=== PATIENT | female | born 1935 | race Caucasian/White ===

== ENCOUNTER 2017-04-16 11:30 | Outpatient (CLI) | payer MEDICARE, OTHER ==
[2017-04-16 12:16] LABS: Hematocrit 35.7 % (36.0-47.0); Red Blood Cell (RBC) Count 3.95 mill/uL (4.20-5.40); White Blood Cell (WBC) Count 5.8 thou/uL (4.8-10.8)
[2017-04-16 12:23] LABS: PTT 30.1 SEC (22.9-36.1); Prothrombin Time 13.2 SEC (12.0-14.7)
[2017-04-16 12:42] LABS: Anion Gap 10 mmol/L (10-20); BUN (Urea Nitrogen) 18 mg/dL (9.8-20.1); Calc. Creatinine Clearance 0 mL/min (70-130); Calcium 9.7 mg/dL (7.8-10.44); Carbon Dioxide 29 mmol/L (23-31); Chloride 102 mmol/L (98-107); Estimated GFR-MDRD 54
[2017-04-16 13:53] LABS: Bilirubin Negative (Negative); Blood, Urine Moderate (Negative); Glucose, Urine (Dipstick) Negative (Negative); Ketone, Urine Negative (Negative); Nitrite Negative (Negative); Protein, Urine (Dipstick) 30 mg/dL (Neg-Trace); Urobilinogen 0.2 mg/dL (0.2-1.0)
[2017-04-16 13:55] LABS: Bacteria/HPF 1+ HPF (None Seen); Hyaline Casts/LPF 0-3 HYALINE CAST LPF (0-3 Hyaline); Squamous Epithelial None Seen HPF (0-3); WBC/HPF 21-50 HPF (0-3)
== END 2017-04-16 11:31 | disposition home or self-care (01) ==
LOC: LABBT 11:30
PROVIDERS: ATTEND Urology
DX: Z01.812 Encounter for preprocedural laboratory examination (principal); N13.39 Other hydronephrosis; N39.41 Urge incontinence
CPT/HCPCS: 80048; 81003; 81015; 85027; 85610; 85730; 87086

== ENCOUNTER 2017-05-02 05:35 | Day surgery (SDC) | payer MEDICARE, OTHER ==
[2017-04-16 11:41] VITALS: BMI 23.9
[2017-05-02] MEDS ORDERED: Levofloxacin 500 mg/D5W 100 ml Premix Bag ONE (06:22)
[2017-05-02 06:39] LABS: Hematocrit 37.2 % (36.0-47.0); Mean Platelet Volume 6.1 fL (7.4-10.4); Red Blood Cell (RBC) Count 4.14 mill/uL (4.20-5.40); White Blood Cell (WBC) Count 5.8 thou/uL (4.8-10.8)
[2017-05-02 06:42] LABS: PTT 28.8 SEC (22.9-36.1); Prothrombin Time 13.2 SEC (12.0-14.7)
[2017-05-02 06:57] LABS: Anion Gap 12 mmol/L (10-20); BUN (Urea Nitrogen) 14 mg/dL (9.8-20.1); Calc. Creatinine Clearance 42 mL/min (70-130); Calcium 9.5 mg/dL (7.8-10.44); Carbon Dioxide 29 mmol/L (23-31); Chloride 102 mmol/L (98-107); Estimated GFR-MDRD 50
[2017-05-02] MEDS ORDERED: Iothalamate Meglumine 60% 50 ML VIAL FS ONE (07:29)
[2017-05-02] MEDS ORDERED: Midazolam HCl 2 mg/2 ml Vial ONE (08:23)
[2017-05-02] MEDS ORDERED: Fentanyl 100 MCG/2 ML VIAL ONE (08:23)
[2017-05-02] MEDS ORDERED: Promethazine HCl 25 MG/ML VIAL ONE (08:24)
--- NOTE | 2017-05-02 08:26 | RAD ---
KUB: Indication: Pre procedure examination. Comparison: 10-30-16 FINDINGS: Examination does not appear appreciably changed from the comparison. There is a left ureteral stent p rojecting in the expected position. No suspicious calcification is seen along the course of the left ureter, nor overlying the left renal shadow. There are vascular calcifications scattered within the p ole and upper abdomen. Bowel gas pattern is nonobstructed. No acute osseous abnormality is evident. IMPRESSION: Left ureteral stent. POS: [facility]
--- NOTE | 2017-05-02 09:34 | RAD ---
RETROGRADE PYELOGRAM: Two fluoroscopic views are presented. INDICATION: Fluoroscopic imaging in the OR during ureteral stent placement. FINDINGS: The 1st image shows wire and catheter overlying the left ureter. The second image shows partial opac ification of the left upper collecting structures and a double-pigtail left ureteral stent in place. POS: [facility]
[2017-05-02] MEDS ORDERED: Phenazopyridine HCl 97.5 MG TABLET ONE (09:59)
--- NOTE | 2017-05-02 11:07 | OP ---
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 POSTOPERATIVE DIAGNOSIS: A 81-year-old female with history of left chronic hydroureteronephrosis sec ondary to B-cell lymphoma, retroperitoneal lymphadenopathy. PROCEDURES PERFORMED: Cystoscopy, left retrograde, 6 x 24 double-J ureteral stent exchange. SURGEON: Dr. Estevez. ANESTHESIA: General LMA. COMPLICATIONS: None apparent. DISPOSITION: To recovery room in stable condition. INDICATIONS FOR THE PROCEDURE AND HISTORY: Ms. Koenig is a 81-year-old female with history of B-cell lymphoma, due to retroperitoneal lymphadenopathy, retroperitoneal fibrosis causing left hydronephrosi s. She is currently on 3-month interval left stent exchange uneventfully. Risks and complications a nd indications reviewed and she desires to proceed. Her last staging CT was performed on 07/2016 dem onstrating left ureteral stent in good position without significant evidence of obstruction. Right k idney is grossly unremarkable. The patient and previously were advised regarding options of stent pull and observation, given her advanced age as an alternative option. They are considering th is due to her advanced age. On our last visit, desires to proceed with interval stent exchan ge. DESCRIPTION OF THE PROCEDURE: After an informed consent was signed, the patient was taken to the ope rating room, placed in a dorsal lithotomy position with the genital area prepped and draped in the [facility] surgical sterile fashion. A 21-Macedonian cystoscope was utilized for cystoscopy. Upon entering the bladder, again demonstrates radiation cystitis with telangiectasia, the bladder mucosa vasculature w ith no active bleeding was noted. There was some sedimentous debris in the dependent portion of the bladder, which was irrigated. The bilateral UOs are normal in anatomical location. The left uretera l stent was in good position and this was removed to the level of the meatus with a grasping forceps. A 0.35 center wire was passed without difficulty into the left mid to lower pole. Retrograde pyelo gram demonstrated chronic hydronephrotic changes. A 6 x 24 double-J ureteral stent was replaced. Gu idewire then subsequently removed uneventfully. Bladder completely emptied. She tolerated the proce dure well and discharged home. She is sent home with Colace 100 mg 1 p.o. b.i.d., Ditropan 10 mg one p.o. q. day and ciprofloxacin for 3 days. She will follow up on 07/03 at 9:45 a.m. for preoperative consultation regarding interval stent exchange in 3-month interval, likely tentative 3-month interva l stent exchange on 08/01.
[2017-05-02] MEDS ORDERED: PHENYLEPHRINE-NS 100 MCG/ML 10 ML SYRINGE ONE (14:01)
[2017-05-02] MEDS ORDERED: ePHEDrine/0.9% NaCl/PF SYRINGE 50 mg/10 ml ONE (14:01)
[2017-05-02] MEDS ORDERED: Glycopyrrolate 0.2 MG/ML 5 ML SYRINGE ONE (14:01)
[2017-05-02] MEDS ORDERED: Propofol 200 MG/20 ML VIAL ONE (14:01)
[2017-05-02] MEDS ORDERED: Lidocaine 1% PF 5 ML VIAL ONE (14:01)
[2017-05-02] MEDS ORDERED: Ondansetron HCl/PF 4 MG/2 ML Vial ONE (14:01)
== END 2017-05-02 10:55 | disposition home or self-care (01) ==
LOC: SDC 05:35
PROVIDERS: ATTEND Urology
PROC: 0T778DZ Dilation of Left Ureter with Intraluminal Device, Via Natural or Artificial Opening Endoscopic (ICD-10-PCS; principal; 2017-05-02)
DX: N13.39 Other hydronephrosis (principal); C84.6 Anaplastic large cell lymphoma, ALK-positive; R59.0 Localized enlarged lymph nodes; I10 Essential (primary) hypertension; E78.5 Hyperlipidemia, unspecified; Z88.2 Allergy status to sulfonamides; Z88.8 Allergy status to other drugs, medicaments and biological substances; Z91.012 Allergy to eggs; Z90.710 Acquired absence of both cervix and uterus; Z98.890 Other specified postprocedural states
CPT/HCPCS: 52332; 74000; 74420; 80048; 85027; 85610; 85730; C1758; C1769; 36415; J1956; J2001; J2250; J2405; J2550; J2704; J3010; Q9961

== ENCOUNTER 2017-07-18 11:55 | Outpatient (CLI) | payer MEDICARE, OTHER ==
[2017-07-18 13:21] LABS: Mean Corpuscular HGB CONC 33.6 g/dL (32.0-36.0); Mean Corpuscular Hemoglobin 29.1 pg (27.0-31.0); Mean Corpuscular Volume 86.8 fl (81.0-99.0); Mean Platelet Volume 5.7 fL (7.4-10.4); Platelet Count 349 thou/uL (130-400); RBC Distribution Width 12.4 % (11.5-14.5); Red Blood Cell (RBC) Count 4.12 mill/uL (4.20-5.40); White Blood Cell (WBC) Count 6.7 thou/uL (4.8-10.8)
[2017-07-18 13:27] LABS: PTT 30.8 SEC (22.9-36.1); Prothrombin Time 13.6 SEC (12.0-14.7)
[2017-07-18 13:40] LABS: Anion Gap 13 mmol/L (10-20); BUN (Urea Nitrogen) 12 mg/dL (9.8-20.1); Calc. Creatinine Clearance 0 mL/min (70-130); Calcium 9.8 mg/dL (7.8-10.44); Carbon Dioxide 27 mmol/L (23-31); Chloride 99 mmol/L (98-107); Estimated GFR-MDRD 46; Glucose 91 mg/dL (83-110); Potassium 3.5 mmol/L (3.5-5.1); Sodium 135 mmol/L (136-145)
--- NOTE | 2017-07-19 17:43 | EKG ---
Test Reason : Blood Pressure : / mmHG Vent. Rate : 059 BPM Atrial Rate : 059 BPM P-R Int : 168 ms QRS Dur : 098 ms QT Int : 426 ms P-R-T Axes : 036 007 004 degrees QTc Int : 421 ms Poor data quality, interpretation may be adversely affected Sinus bradycardia with Premature atrial complexes Voltage criteria for left ventricular hypertrophy Inferior infarct (cited on or before 22-JAN-2017) Abnormal ECG When compared with ECG of 22-JAN-2017 12:07, Premature atrial complexes are now Present Confirmed by DR. Radha BERRY ([id number]) on 07/19/2017 5:42:59 PM Referred By: SUSAN Confirmed By:DR. Radha BERRY
== END 2017-07-18 11:56 | disposition home or self-care (01) ==
LOC: LABBT 11:55
PROVIDERS: ATTEND Urology
DX: Z01.812 Encounter for preprocedural laboratory examination (principal); N13.30 Unspecified hydronephrosis
CPT/HCPCS: 74178; 80048; 81001; 85027; 85610; 85730; 87086; 93005; 93010

== ENCOUNTER 2017-08-01 05:55 | Day surgery (SDC) | payer MEDICARE, OTHER ==
[2017-07-18 12:34] VITALS: BMI 24.3
[2017-08-01] MEDS ORDERED: Promethazine HCl 25 MG/ML VIAL ONE (06:49)
[2017-08-01] MEDS ORDERED: Fentanyl 250 MCG/5 ML VIAL ONE (06:49)
[2017-08-01] MEDS ORDERED: Iothalamate Meglumine 60% 50 ML VIAL FS ONE (07:12)
[2017-08-01] MEDS ORDERED: Levofloxacin 500 mg/D5W 100 ml Premix Bag ONE (07:13)
--- NOTE | 2017-08-01 09:16 | OP ---
DATE OF PROCEDURE: 08/01/2017 PREOPERATIVE DIAGNOSES: 1. An 82-year-old female with history of left hydronephrosis secondary to lymphoma, status post chemotherapy with persistent left retroperitoneal mass/ fibrosis. 2. History of stable left adrenal low density lesion consistent with adenoma x2 lobulated measuring 2.2 to 2.4 cm each, stable since 09/2012 on imaging. 3. History of squamous cell carcinoma of the vagina, status post pelvic radiation therapy. 4. Squamous cell carcinoma of the skin. POSTOPERATIVE DIAGNOSES: 1. An 82-year-old female with history of left hydronephrosis secondary to lymphoma, status post chemotherapy with persistent left retroperitoneal mass/ fibrosis. 2. History of stable left adrenal low density lesion consistent with adenoma x2 lobulated measuring 2.2 to 2.4 cm each, stable since 09/2012 on imaging. 3. History of squamous cell carcinoma of the vagina, status post pelvic radiation therapy. 4. Squamous cell carcinoma of the skin. PROCEDURE: Cystoscopy, left retrograde, 6 x 22 double-J ureteral stent exchange. SURGEON: Jacy Estevez D.O. ANESTHESIA: LMA. COMPLICATIONS: None apparent. DISPOSITION: Recovery room in stable condition. INDICATIONS FOR THE PROCEDURE AND HISTORY: Ms. Koenig is an 82-year-old female with history of left hydronephrosis, chronic in nature due to retroperitoneal lymphadenopathy, fibrosis, status post chemotherapy for lymphoma B cell. The patient in remission, followed by Dr. Evans. She is on 3 month interval ureteral stent exchange due to chronic left hydronephrosis. I previously had discussed options of stent removal and observation, given her advanced age as she inquired regarding alternative conservative options. The patient and have been fully informed regarding possible risk of renal failure, sepsis, flank pain, renal insufficiency. The patient desires to continue interval stent exchange as she has been tolerating it uneventfully. Risks and complications of the procedure was reviewed including, but not limited to, bleeding, pain, infection, injury to adjacent organs, urosepsis. All questions answered to her satisfaction, and they desired to proceed. DESCRIPTION OF THE PROCEDURE: After an informed consent is signed, the patient is taken to the operating room, placed in a dorsal lithotomy position with the genital area prepped and draped in the usual surgical sterile fashion. A 21- Khmer cystoscope was utilized for cystoscopy, which again demonstrated chronic inflammatory changes consistent with radiation cystitis. There was no evidence of intraluminal bladder mass concerning for occult malignancy. The bilateral UOs are normal anatomical location. Her previous left ureteral stent did have significant redundant loop in the bladder which is secondary to the stent migrated into the renal pelvis, proximal ureter. The stent was removed uneventfully and there was some encrustation. However, I was able to pass a 0.35 sensor wire through the stent uneventfully. The wire was then placed in the left lower pole. We performed a retrograde pyelogram with the wire in situ using a dual-lumen access sheath. This demonstrated chronic hydronephrotic changes. There was no evidence of ureteral mass or filling defect. At this time, a 6 x 24 stent was exchanged; however, this appeared to be too redundant despite the proximal coil in the lower pelvis. Therefore, I did change the stent out to a 6 x 22. She tolerated the procedure well and transferred to the recovery room in stable condition. She is discharged with refill on oxybutynin 10 mg XL, Colace 100 mg b.i.d., ciprofloxacin for a course of 3 days. Appointment with [facility] 10/05/2017 at 11:15 a.m. for preop for interval stent exchange. As the patient and desired to continue interval stent exchange we will continue to do so. The patient has history of left adrenal low cystic lesion which has been stable in size over the last 5 years. We will continue to survey with interval imaging for history of hydronephrosis, retroperitoneal lymphadenopathy. [facility]
--- NOTE | 2017-08-01 09:29 | RAD ---
KUB: Date: 08-01-17 Comparison: 05-02-17 History: Pre-operative patient, left ureteral stent. FINDINGS: There is a stable double J ureteral stent on the left. There is a punctate calcific density along the course of the left double J ureteral stent at the axial level at the lumbosacral junction which coul d be osseous in nature or vascular in nature. It is doubtful that this represents a stone within the ureter. Small densities are seen inferior to the proximal coil of the left double J ureteral stent. C orrelation with CT performed 07-18-17 does not demonstrate intrarenal stone disease. The bowel gas martha antonio is nonobstructed. There is extensive degenerative change of the spine. IMPRESSION: Left double J ureteral stent in place. No discrete calcification as seen along the course of the exte nt to suggest intraureteral stone disease when correlated with recent CT exam. POS: [facility]
--- NOTE | 2017-08-01 09:37 | RAD ---
RETROGRADE IVP: Comparison: 05-02-17 History: Stent change. FINDINGS: Intraprocedure fluoroscopy is provided for Dr. Estevez. Three images demonstrate replacement of t he left sided double J ureteral stent. Proximal pigtail is in the lower pole of the left intrarenal c ollecting system. Distal pigtail is in the left aspect of the bladder. IMPRESSION: As above. POS: [facility]
[2017-08-01] MEDS ORDERED: Lidocaine 1% PF 5 ML VIAL ONE (15:18)
[2017-08-01] MEDS ORDERED: PHENYLEPHRINE-NS 100 MCG/ML 10 ML SYRINGE ONE (15:18)
[2017-08-01] MEDS ORDERED: ePHEDrine/0.9% NaCl/PF SYRINGE 50 mg/10 ml ONE (15:18)
[2017-08-01] MEDS ORDERED: Ondansetron HCl/PF 4 MG/2 ML Vial ONE (15:18)
[2017-08-01] MEDS ORDERED: Propofol 200 MG/20 ML VIAL ONE (15:18)
== END 2017-08-01 09:40 | disposition home or self-care (01) ==
LOC: SDC 05:55
PROVIDERS: ATTEND Urology
PROC: 0T778DZ Dilation of Left Ureter with Intraluminal Device, Via Natural or Artificial Opening Endoscopic (ICD-10-PCS; principal; 2017-08-01)
PROC: 0TP98DZ Removal of Intraluminal Device from Ureter, Via Natural or Artificial Opening Endoscopic (ICD-10-PCS; 2017-08-01)
DX: C85.10 Unspecified B-cell lymphoma, unspecified site (principal); N13.39 Other hydronephrosis; E27.8 Other specified disorders of adrenal gland; R19.09 Other intra-abdominal and pelvic swelling, mass and lump; R59.0 Localized enlarged lymph nodes; I10 Essential (primary) hypertension; E78.5 Hyperlipidemia, unspecified; Z92.21 Personal history of antineoplastic chemotherapy; Z92.3 Personal history of irradiation; Z85.44 Personal history of malignant neoplasm of other female genital organs; Z86.73 Personal history of transient ischemic attack (TIA), and cerebral infarction without residual deficits; Z79.899 Other long term (current) drug therapy; Z88.2 Allergy status to sulfonamides; Z88.8 Allergy status to other drugs, medicaments and biological substances; Z91.012 Allergy to eggs; Z98.890 Other specified postprocedural states
CPT/HCPCS: 74018; 74420; C1758; C1769; J1956; J2001; J2405; J2550; J2704; J3010; Q9961

== ENCOUNTER 2017-10-31 08:46 | Outpatient (CLI) | payer MEDICARE, OTHER ==
--- NOTE | 2017-10-31 11:08 | RAD ---
IVP: HISTORY: Hydronephrosis. COMPARISON: Retrograde IVP from 08/01/[address] abdomen and pelvis from 07/18/2017. FINDINGS: An IVP was performed in the standard fashion. A daycare worker radiograph showed no obvious calcifications pr ojecting over either renal shadow. After the administration of contrast, the right nephrogram was se en without visibility of the left nephrogram. Contrast was seen in the right renal pelvis, which was mildly enlarged, with mild calyceal dilatation. Minimal contrast was excreted from the left kidney. On the prone image, there was a small amount of contrast in the left renal collecting system and a slight left-sided nephrogram, but this is asymmetric when compared to the right. Neither ureter was able to be seen during this examination. The urinary bladder filled with contrast. Moderate post vo id residual was seen. IMPRESSION: 1. Poorly functioning left kidney. 2. Mild right-sided hydronephrosis. POS: [facility]
== END 2017-10-31 08:47 | disposition home or self-care (01) ==
LOC: RAD 08:46
PROVIDERS: ATTEND Urology
DX: N13.39 Other hydronephrosis (principal)
CPT/HCPCS: 74410

== ENCOUNTER 2017-11-06 18:40 | Inpatient (IN) | payer MEDICARE, OTHER ==
--- NOTE | 2017-11-06 19:21 | RAD ---
RADIOGRAPH CHEST 1 VIEW: 11/06/17 HISTORY: 82-year-old female with fever. FINDINGS: The thoracic aorta is tortuous and ectatic. There is no evidence of air space density, pneumothorax, or pulmonary edema. The lateral costophrenic angles are sharp. IMPRESSION: 1) No acute pulmonary findings. 2) Ectasia of thoracic aorta. david [] POS: [facility]
[2017-11-06 19:25] LABS: #Lymphocytes 0.8 thou/uL (1.20-3.40); #Monocytes 0.7 thou/uL (0.11-0.59); #Neutrophils 15.3 thou/uL (1.40-6.50); %Basophils 0.1 % (0.0-1.0); %Eosinophils 0.1 % (0.0-10.0); %Neutrophils 90.8 % (42.0-75.0); Mean Corpuscular HGB CONC 33.5 g/dL (32.0-36.0); Mean Corpuscular Volume 83.6 fL (78.0-98.0); Mean Platelet Volume 5.4 fL (7.4-10.4); Platelet Count 338 thou/uL (130-400); RBC Distribution Width 12.4 % (11.5-14.5); Red Blood Cell (RBC) Count 4.28 mill/uL (4.20-5.40); White Blood Cell (WBC) Count 16.8 thou/uL (4.8-10.8)
[2017-11-06 19:44] LABS: ALT (SGPT) 11 U/L (8-55); AST (SGOT) 19 U/L (5-34); Albumin 4.3 g/dL (3.4-4.8); Alkaline Phosphatase 89 U/L (40-150); Anion Gap 14 mmol/L (10-20); BUN (Urea Nitrogen) 16 mg/dL (9.8-20.1); Bilirubin, Total 0.6 mg/dL (0.2-1.2); CK (CPK) 62 U/L (29-168); Calc. Creatinine Clearance 0 mL/min (70-130); Calcium 9.9 mg/dL (7.8-10.44); Carbon Dioxide 25 mmol/L (23-31); Chloride 96 mmol/L (98-107); Estimated GFR-MDRD 31; Globulin 2.5 g/dL (2.4-3.5); Glucose 133 mg/dL (83-110); Lipase 10 U/L (8-78); Potassium 4.4 mmol/L (3.5-5.1); Protein, Total 6.8 g/dL (6.0-8.3); Sodium 131 mmol/L (136-145)
[2017-11-06 19:47] LABS: Bilirubin Negative (Negative); Blood, Urine Large (Negative); Clarity TURBID (Clear); Glucose, Urine (Dipstick) Negative (Negative); Leukocyte Large (Negative); Nitrite Positive (Negative); Protein, Urine (Dipstick) 300 mg/dL (Neg-Trace); Specific Gravity, Urine 1.014 (1.002-1.036); Urobilinogen 0.2 mg/dL (0.2-1.0); pH, Urine 7.5 (5.0-9.0)
[2017-11-06 19:49] LABS: Pathc Cast-AUWi Flag 2.28 (0-2.49); Squamous Epithelial None Seen HPF (0-3)
[2017-11-06 19:49] LABS: CKMB 2.1 ng/mL (0-6.6); Troponin I Less than 0.010 ng/mL (< 0.028)
[2017-11-06 19:55] LABS: Yeast-AUWi Flag 404.8 (0-25.0)
[2017-11-06 20:05] LABS: Bacteria/HPF Rare-Few HPF (None Seen); Hyaline Casts/LPF NONE SEEN LPF (0-3 Hyaline); Yeast-All Forms None Seen HPF (None Seen)
[2017-11-06] MEDS ORDERED: cefTRIAXone\\ROCEPHIN 2 GM VIAL ONE (20:42)
[2017-11-06] MEDS ORDERED: Sodium Chloride 0.9% 100 ML ONE (20:43)
[2017-11-06] MEDS ORDERED: Ondansetron ODT 4 MG TAB PO PRN (22:48)
[2017-11-06] MEDS ORDERED: Acetaminophen 325 MG TAB PO PRN (22:48)
[2017-11-06] MEDS ORDERED: Docusate 100 MG CAP PO PRN (22:48)
[2017-11-06] MEDS ORDERED: hydrALAZINE 20 MG/ML VIAL SLOW IVP PRN (23:18)
--- NOTE | 2017-11-06 23:20 | PDOC.FPRHP ---
- History of Present Illness Chief Complaint: confusion, weakness, fever History of Present Illness: Resident: Marnie Horton DO PCP: OOT, [facility] Specialists: - Oncology, Dr. Evans - Urology, Dr. Pena - Nephrology, Dr. Mcdonald - Gynecology, Dr. Monzon Patient is an 82 yo F with PMH of HTN, HLD, vaginal squamous cell carcinoma, skin squamous cell carcinoma, and lymphoma with an obstructing retroperitoneal mass causing hydronephrosis s/p stent placement comes to ED from home with weakness and fever to 102 at home. Hx is limited because family is not available by phone or in person and patient is confused, being AOx1. She reports dysuria and frequency as well as suprapubic abdominal pain. Denies back pain, N/V, and hematuria. Per ER documentation had ureteral stent removed 2 weeks ago although there is no documentation to confirm this in [facility] and again no confirmation with family members. ED Course: In the ED she received 1L NS and 2g Rocephin - Allergies/Adverse Reactions Allergies Allergy/AdvReac Type Severity Reaction Status Date / Time egg Allergy "makes me Verified 07/18/17 12:35 deathly sick" "raw or cooked" Sulfa (Sulfonamide Allergy "breaks me Verified 07/18/17 12:35 Antibiotics) out" aspirin AdvReac Nausea Verified 07/18/17 12:35 - Home Medications Medication Instructions Recorded Confirmed Type Simvastatin [Zocor] 40 mg PO QPM 05/05/14 11/07/17 History Oxybutynin Chloride [Oxybutynin 10 mg PO QAM 05/29/14 11/07/17 History Chloride ER] Docusate Sodium 100 mg PO DAILY 05/17/15 11/07/17 History Potassium Chloride 10 meq PO DAILY 11/07/17 11/07/17 History Comments: These meds are from prior admission, unsure if correct, will med rec with pharmacy. - History PMHx: 1. HLD 2. HTN 3. Hx of hydronephrosis s/p multiple stent placements 4. Chronic Hyponatremia 5. Hx of lymphoma 6. Hx of SCC of vagina 7. Hx of SCC of skin PSHx: 1. hysterectomy, BSO 2. ureteral stent placement on multiple occasions 3. retroperitoneal mass biopsy 4. multiple urologic procedures, refer to H&P done by Dr. Pena FHx: noncontributory Social: denied tobacco, etoh, and drug use. - Review of Systems ROS unobtainable: due to mental status (limited due to her being AOx1) General: reports: fever/chills ENT: denies: nasal congestion Respiratory: denies: cough, congestion, shortness of breath Cardiovascular: denies: chest pain Gastrointestinal: reports: abdominal pain. denies: nausea, vomiting, diarrhea, constipation Genitourinary: reports: dysuria Skin: denies: rashes, lesions Musculoskeletal: denies: pain, tenderness Neurological: denies: syncope - Vital signs BP: 174/90 HR: 109 RR: 22 Tmax: 99.2 Pox: 94% on RA Wt: 60.3kg - Physical Exam Constitutional: NAD -Constitutional: AOx1, drowsy but arousable and can hold conversation HEENT: normocephalic and atraumatic, PERRLA, EOMI, no scleral icterus, grossly normal vision, grossly normal hearing -HEENT: dentures in place, hirsutism Neck: supple, FROM, trachea midline Chest: no-tender to palpation Heart: RRR, normal S1/S2, no murmurs/rubs/gallops Lungs: CTAB, no respiratory distress, no wheezing Abdomen: soft -Abdomen: mild distension of bladder although difficult to determine due to patient guarding, ttp along suprapubic region with guarding, no CVA tenderness Musculoskeletal: normal structure, normal tone Neurological: no focal deficit Skin: no rash/lesions, good turgor, capillary refill <2 seconds -Psychiatric: confused FMR H&P: Results - Labs Result Diagrams: 11/07/17 04:36 11/07/17 04:36 Lab results: WBC 16.8 thou/uL (4.8-10.8) H 11/06/17 19:03 Hgb 12.0 g/dL (12.0-16.0) 11/06/17 19:03 Hct 35.7 % (36.0-47.0) L 11/06/17 19:03 MCV 83.6 fL (78.0-98.0) 11/06/17 19:03 Plt Count 338 thou/uL (130-400) 11/06/17 19:03 Neutrophils % 90.8 % (42.0-75.0) H 11/06/17 19:03 Sodium 131 mmol/L (136-145) L 11/06/17 19:03 Potassium 4.4 mmol/L (3.5-5.1) 11/06/17 19:03 Chloride 96 mmol/L (98-107) L 11/06/17 19:03 Carbon Dioxide 25 mmol/L (23-31) 11/06/17 19:03 BUN 16 mg/dL (9.8-20.1) 11/06/17 19:03 Creatinine 1.61 mg/dL (0.6-1.1) H 11/06/17 19:03 Glucose 133 mg/dL (83-110) H 11/06/17 19:03 Lactic Acid 1.1 mmol/L (0.5-2.2) 11/06/17 19:03 Calcium 9.9 mg/dL (7.8-10.44) 11/06/17 19:03 Total Bilirubin 0.6 mg/dL (0.2-1.2) 11/06/17 19:03 AST 19 U/L (5-34) 11/06/17 19:03 ALT 11 U/L (8-55) 11/06/17 19:03 Alkaline Phosphatase 89 U/L (40-150) 11/06/17 19:03 Creatine Kinase 62 U/L (29-168) 11/06/17 19:03 CK-MB (CK-2) 2.1 ng/mL (0-6.6) 11/06/17 19:03 Serum Total Protein 6.8 g/dL (6.0-8.3) 11/06/17 19:03 Albumin 4.3 g/dL (3.4-4.8) 11/06/17 19:03 Lipase 10 U/L (8-78) 11/06/17 19:03 Urine Ketones Negative mg/dL (Negative) 11/06/17 19:37 Urine Blood Large (Negative) H 11/06/17 19:37 Urine Nitrite Positive (Negative) H 11/06/17 19:37 Ur Leukocyte Esterase Large (Negative) H 11/06/17 19:37 Urine RBC 11-20 HPF (0-3) H 11/06/17 19:37 Urine WBC Greater Than 50-TNTC HPF (0-3) H 11/06/17 19:37 Ur Squamous Epith Cells None Seen HPF (0-3) 11/06/17 19:37 Urine Bacteria Rare-Few HPF (None Seen) 11/06/17 19:37 - EKG Interpretation EKG: Sinus tachycardia - Radiology Interpretation Chest x-ray Status: image reviewed by me, report reviewed by me Additional comment: no acute findings, ectasia of thoracic aorta FMR H&P: A/P - Problem List (1) Sepsis secondary to UTI Current Visit: No Status: Acute Code(s): A41.9 - SEPSIS, UNSPECIFIED ORGANISM; N39.0 - URINARY TRACT INFECTION, SITE NOT SPECIFIED (2) MONIQUE (acute kidney injury) Current Visit: No Status: Acute Code(s): N17.9 - ACUTE KIDNEY FAILURE, UNSPECIFIED (3) Chronic hyponatremia Current Visit: No Status: Chronic Code(s): E87.1 - HYPO-OSMOLALITY AND HYPONATREMIA (4) Hx of hydronephrosis Current Visit: No Status: Chronic Code(s): Z87.448 - PERSONAL HISTORY OF OTHER DISEASES OF URINARY SYSTEM (5) Lymphoma Current Visit: No Status: Chronic (6) Squamous cell carcinoma of vagina Current Visit: No Status: Chronic Code(s): C52 - MALIGNANT NEOPLASM OF VAGINA (7) Hypertension Current Visit: No Status: Chronic Code(s): I10 - ESSENTIAL (PRIMARY) HYPERTENSION (8) Hyperlipidemia Current Visit: No Status: Chronic Code(s): E78.5 - HYPERLIPIDEMIA, UNSPECIFIED (9) Squamous cell carcinoma of skin Current Visit: No Status: Chronic Code(s): C44.92 - SQUAMOUS CELL CARCINOMA OF SKIN, UNSPECIFIED - Plan Sepsis 2/2 Complicated UTI - Patient has tachycardia, reported fever at home, WBC of 16,000, and source. Patient with hx of hydronephrosis 2/2 obstructing retroperitoneal mass s/p stent placement. Per ER documentation was removed 2 weeks ago although patient could not confirm this information. Patient with hx of Klebsiella UTI in 2017. S/p 1 dose of Rocephin in ED. - Continue Rocephin IV - Urine/blood cx pending - Tylenol for fever - consult Dr. Pena for continued care in AM - possible bladder distension on exam, bladder scan - s/p 1L NS, continue maitenance IVF of NS at 100 - patient with AMS at this time, unable to discuss baseline with family. Plan to call again tomorrow at [phone]. Continue to monitor for worsening. Could be associated with acute infection. MONIQUE - BUN/Cr ratio of 10 suggesting either intrinsic or postrenal etiology - FeUrea pending - continue to monitor and avoid nephrotoxic agents Chronic Hyponatremia - lower than last documented Na - will give IVF and trend - patient asymptomatic HLD - continue home statin HTN - continue home amlodipine Hx of Hydronephrosis - as discussed above, will discuss with Dr. Pena Lymphoma - currently being treated with chemo by Dr. Evans SCC of Vagina - followed by Dr. Evans SCC of skin - followed by Dr. Evans VTE PPx: Lovenox Code Status: Full Dispo: Likely <48h pending urine cx and urology recs. FMR H&P: Upper Level - Plan Date/Time: 11/06/17 2320 PCP-CC Pt is an 82 yo WF w/ PMH of htn, hld, squamous cell cx of the vagina s/p radiation therapy, squamous cell skin cancer, lymphoma and multiple urologic procedures who presented to the ED with her after home health nurse recorded a fever of 102 and she had back pain and decreased oral intake for 4-5 days. This is per the ER as has left at time of our examination and pt is AOx1 and cannot tell us why she is here other than suprapubic pain. Pt states that she wants to be full code. She sees Dr. Campuzano in urology and I see in [facility] she has had multiple ureteral stent replacements and reportedly had one removed 2 weeks ago though this is not in chart here, may have been done in the office. She had hydronephrosis from a retroperitoneal mass related to her cancer. General: AOx1, appears in no acute distress, appears approximate stated age, hirsuitism of face HEENT: moist mucus membranes, no pharyngeal edema Cardiac: RRR, no murmurs, gallops, clicks or rubs Lungs: CTA, no wheezes, rales, rubs, rhonchi Abdomen: soft, non TTP, normoactive bs, no abdominal mass or pulsation, + suprapubic tenderness, -CVA tenderness Extremities: No TTP, no swelling, cyanosis, no pitting edema A/P 1. Sepsis 2/2 complicated UTI-admit, medical, treat with rocephin, gentle fluids, UCx, BCx, hx of multiple urologic procedures including cystoscopy, stent placement, will let Dr. Campuzano know she is here in the AM 2. MONIQUE on CKD- obtain FeUrea 3. Hyponatremia-chronic, gentle hydration to not rapidly overcorrect 4. Htn-home meds 5. Hld-home statin Hx of multiple cancers including vaginal squamous cell cx, sq. cell skin cancer , lymphoma- sees Dr. Evans outpatient. Hx of retroperitoneal mass causing hydronephrosis I, Sherry Rossi, have evaluated this patient and agree with findings/plan as outlined by application support intern resident, Dr. Horton. Pertinent changes/additions are listed here. Attending Addendum - Attending Addendum Date/Time: 11/07/17 0908 I personally evaluated the patient and discussed the management with Dr. Horton I agree with the History, Examination, Assessment and Plan documented above with any addition or exceptions noted below.Patient with history of obstructive uropathy secondary to lymphoma s/p stent diversion. patient presents with urosepsis will continue current ABX regimen, access status of stent placement appreciate recommendation of Urology. Patient follow by Dr Evans Oncologist as well additional history squamous cell CA of vagina.
[2017-11-07 00:04] VITALS: BMI 24.5
[2017-11-07] MEDS: Sodium Chloride 0.9% 1,000 ML IV SCH ×3 (02:03→21:11)
[2017-11-07 04:12] LABS: Creatinine, Urine 66.14 mg/dL (47-110)
[2017-11-07 05:28] LABS: Anion Gap 15 mmol/L (10-20); BUN (Urea Nitrogen) 16 mg/dL (9.8-20.1); Calc. Creatinine Clearance 30 mL/min (70-130); Calcium 9.3 mg/dL (7.8-10.44); Carbon Dioxide 25 mmol/L (23-31); Chloride 97 mmol/L (98-107); Estimated GFR-MDRD 36; Glucose 114 mg/dL (83-110); Potassium 4.1 mmol/L (3.5-5.1); Sodium 133 mmol/L (136-145)
[2017-11-07 06:17] LABS: Band 26 % (5-11); Hemoglobin 12.2 g/dL (12.0-16.0); Lymphocytes 4 % (21-51); MDiff Complete? YES; Mean Corpuscular Hemoglobin 28.6 pg (27.0-31.0); Mean Corpuscular Volume 84.1 fL (78.0-98.0); Mean Platelet Volume 5.6 fL (7.4-10.4); Monocytes 3 % (0-10); Neutrophil 67 % (42-75); Platelet Count 323 thou/uL (130-400); RBC Distribution Width 12.8 % (11.5-14.5); Red Blood Cell (RBC) Count 4.26 mill/uL (4.20-5.40); White Blood Cell (WBC) Count 22.3 thou/uL (4.8-10.8)
[2017-11-07] MEDS ORDERED: Iothalamate Meglumine 60% 50 ML VIAL FS ONE (08:48)
--- NOTE | 2017-11-07 08:48 | CON ---
DATE OF CONSULTATION: 11/07/2017 HISTORY OF PRESENT ILLNESS: Ms. 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 Evans. She has undergone CVP/rituximab 8 cycles and has ongoing residual left retroperitoneal mass/fibrosis. The patient previously was on interval ureteral stent exchange every 3-4 months with minimal encrustation. Her last stent exchange was 08/01/2017. She also has in addition to lymphoma, squamous cell carcinoma of the vagina, squamous cell carcinoma of the skin. Her prior cystoscopy demonstrated changes consistent with radiation cystitis. Prior staging Lasix renal scan Demonstrated no significant obstructive component of the right kidney. She has previously undergone interval stent exchanges uneventfully. She was informed by medical oncology to consider observation if stent pull and observation. I did further discuss this matter with patient and her . Due to her advanced age, they desired trial of stent pull and observation. They've been fully informed regarding possible consequence of renal failure pyelonephritis urosepsis. Stent pull was performed uneventfully my office August 11, 2017. I did see the patient subsequenly which she was doing well, no evidence of pyelonephritis flank pain. Patient currently admitted with the family medicine service with history of fever 102, confused. Urine is grossly infected with white count of 22,000. Emergent CT scan was obtained this morning demonstrating severe left hydronephrosis. Right kidney grossly unremarkable with no evidence of hydronephrosis. I did discuss this matter with her , indications for replacement of right stent reviewed. Options of observation reviewed which I did not recommend due to her septic picture. He desires to proceed with replacement of ureteral stent. 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 Vaginal biopsy, left femoral hernia repair, total abdominal hysterectomy, BSO multiple cystoscopies in interval stent exchange. stent pull October 11, 2017 Allergic to sulfa Home medications include simvastatin potassium chloride Lasix Oxy 10 10 mg XL 10 point review systems as above otherwise noncontributory Physical exam currently her vital signs are stable, she is afebrile 98 05/22/19 181/85, postvoid residual obtained by primary service 133. General patient is grossly confused, oriented 1 HEENT is grossly unremarkable Heart regular rate Lungs clear to auscultation Abdomen demonstrates no evidence of CVA tenderness subjective area of discomfort at the suprapubic region Extremities no sinuses clubbing or edema Neurologic to gross focal deficits Pertinent labs white count on admission 16,000, this more 22,026 bands UA demonstrates 300 protein positive nitrates couldn't 50 WBCs 11-20 RBCs, culture pending no epithelials Creatinine 1.4 Blood culture urine culture pending CT the abdomen and pelvis stone protocol: No evidence of right hydronephrosis. Left kidney demonstrates severe hydroureteronephrosis. Small mono fluid in the left upper quadrant, focal area of fluid collection the deep pelvis measuring 5 x 5 cm, unchanged from previous CT. I did review the images myself with the radiologist, this fluid collection in the pelvis is not contiguous with the bladder, not concerning for abscess. Impression plan: Ms. Koenig is an 82-year-old female with history of B-cell lymphoma, resulting in left hydronephrosis status post chemotherapy followed by Dr. Evans. Patient requested trial of ureteral stent, subsequently admitted for UTI uroseptic picture. Patient is nothing by mouth, plan cystoscopy, left stent placement. Patient's has been informed, he desires me to proceed. DC Rocephin, we'll start meropenem MTDD
[2017-11-07] MEDS ORDERED: Non-Formulary Item 1 EACH (Oxybutynin Chloride [Oxybutynin Chloride Er] 10 MG) PO SCH (09:00)
[2017-11-07] MEDS ORDERED: Non-Formulary Item 1 EACH (Potassium Chloride [Potassium Chloride] 10 MEQ) PO SCH (09:00)
[2017-11-07] MEDS ORDERED: Prevnar 13-Val Conj/PF 0.5 ML SYRINGE IM ONE (09:00)
[2017-11-07] MEDS ORDERED: Ketamine 50 MG/ML VIAL ONE (09:14)
--- NOTE | 2017-11-07 10:12 | CT ---
CT ABDOMEN AND PELIS WITHOUT IV CONTRAST: Multiple axial tomograms are obtained through the abdomen and pelvis without IV enhancement. Oral co ntrast was not administered. INDICATION: Fever and hydronephrosis. COMPARISON: Comparison is made to CT abdomen and pelvis 07/18/17. FINDINGS: Bibasilar lung atelectasis. Hepatic cystic lesions have been previously described and are again noted and stable. Spleen is unre markable. Pancreas unremarkable. There is a lobulated left adrenal mass which has been described previously and does not appear change d. The left-sided ureteral stent has been removed. There is now severe left hydronephrosis. Left urete r is dilated to the bladder. Etiology for the left hydronephrosis is not apparent on this exam. The re is no evidence of ureteral calculus. No evidence of renal calculus. There is perinephric strandi ng on the left which has occurred since the prior exam. The right kidney is unremarkable with no hyd ro on the right. Bowel loops unremarkable. Aorta is calcified and mildly ectatic but stable. Images through the pelvis reveal a fluid collection in deep pelvis to the right of midline pushing on the rectum and sigmoid which was previously and is unchanged. This fluid dense collection measures 5 cm AP dimension x 5 cm width. A small amount of free fluid is also seen in the left upper quadrant surrounding the spleen under the left hemidiaphragm. The haziness and stranding in the mesentery on the left at the level of the renal artery and vein has been previously described and is again noted. IMPRESSION: 1. Severe left hydronephrosis which has developed since the prior exam. Etiology for hydronephrosis is not apparent by CT. Left perinephric stranding has developed since the prior study. 2. A small amount of fluid in the left upper quadrant of the left hemidiaphragm and a focal fluid co llection in the deep pelvis to the right of midline as described above. 3. Bibasilar lung atelectasis. 4. Hepatic cysts and left lobulated adrenal mass have been previously described and appear unchanged . POS: [facility]
[2017-11-07] MEDS: Oxybutynin 5 MG TAB PO SCH (10:17)
[2017-11-07] MEDS: Enoxaparin Sodium 40 MG/0.4 ML SYRINGE SC SCH (10:17)
[2017-11-07] MEDS: Meropenem 2 GM in Sodium Chloride 0.9% 100 ML IVPB SCH ×2 (10:17→21:10)
--- NOTE | 2017-11-07 11:45 | OP ---
DATE OF PROCEDURE: 11/07/2017 PREOPERATIVE DIAGNOSES: 1. History of left B cell lymphoma with chronic hydronephrosis, retroperitoneal fibrosis. 2. Current admission due to a urinary tract infection, rule out urosepsis, worsening left hydronephrosis. POSTOPERATIVE DIAGNOSES: 1. History of left B cell lymphoma with chronic hydronephrosis, retroperitoneal fibrosis. 2. Current admission due to a urinary tract infection, rule out urosepsis, worsening left hydronephrosis. PROCEDURE: Cystoscopy, left 6 x 24 stent replacement, retrograde pyelogram. SURGEON: Jacy Estevez D.O. ANESTHESIA: General. COMPLICATIONS: None apparent. DISPOSITION: To recovery room in stable condition. INTRAOPERATIVE FINDINGS: 1. Pyelocystitis. 2. Left hydronephrosis with progressive worsening due to interval ureteral stent removal. 3. Radiation cystitis changes with no active bleeding. SPECIMEN: None. DRAINS: An 18-Lithuanian 10 mL Rivas to gravity, 6 x 24 left ureteral stent. INDICATIONS FOR THE PROCEDURE AND HISTORY: Ms. Koenig is an 82-year-old female with history of left B cell lymphoma with chronic left hydronephrosis, squamous cell carcinoma of the vagina, squamous cell carcinoma of the skin. She has previously undergone interval stent exchange uneventfully. The patient and desired trial of removal of ureteral stent and observation with full understanding regarding possible risk of renal failure, urosepsis, pyelonephritis. The patient unfortunately presented with mental status changes , history of fever, significant leukocytosis. CT staging this morning demonstrates worsening of left hydronephrosis as anticipated with changes consistent with pyelonephritis. The right kidney demonstrates no significant change from prior imaging as she has a component of extrarenal pelvis. Prior CT demonstrated no evidence of obstruction of the right kidney. She presents for cystoscopy replacement of stent. Indications were reviewed with and he desired the ureteral stent to be replaced. DESCRIPTION OF THE PROCEDURE: After an informed consent is signed, the patient is taken to the operating room, placed in a dorsal lithotomy position. Broad- spectrum antibiotics with meropenem was provided. A 21 Lithuanian cystoscope was utilized for cystoscopy and upon entering the bladder gross evidence of pyelocystitis was appreciated. Bladder was irrigated so that we can see the bladder mucosa. Again noted is telangiectasia of the bladder mucosa consistent with radiation cystitis. The left UO was identified. An open-ended catheter was placed to the level of the renal pelvis. As she does have morphology demonstrating hydronephrosis, I did gently placed a retrograde pyelogram to opacify for confirmation of appropriate stent placement. A 0.385 guidewire was placed in the left mid to upper pole and a 6 x 24 double-J ureteral stent was placed. Evidence of pustular drainage from the left kidney was noted. An 18 Lithuanian 10 mL Rivas catheter was placed to gravity. She will continue to be observed with broad-spectrum antibiotics. Await blood culture and urine culture. KVNG
--- NOTE | 2017-11-07 12:39 | RAD ---
RETROGRADE PYELOGRAM: 11/07/2017 HISTORY: Stent placement. FINDINGS: Two images were provided. One image demonstrates a wire curling over the left upper quadrant and the other image demonstrates a partially visualized left ureteral stent. IMPRESSION: Retrograde pyelogram, as above. POS: [facility]
[2017-11-07] MEDS: Potassium Chloride 10 MEQ TAB PO SCH (12:43)
[2017-11-07] MEDS ORDERED: Ondansetron HCl/PF 4 MG/2 ML Vial ONE (13:44)
[2017-11-07] MEDS ORDERED: Glycopyrrolate 0.2 MG/ML 5 ML SYRINGE ONE (13:44)
[2017-11-07] MEDS ORDERED: Meropenem 2 GM in Sodium Chloride 0.9% 100 ML IVPB SCH (14:00)
[2017-11-07] MEDS ORDERED: cefTRIAXone\\ROCEPHIN 2 GM in Sodium Chloride 0.9% 100 ML IVPB SCH (21:00)
[2017-11-07] MEDS ORDERED: Simvastatin 40 MG TAB PO SCH (21:00)
[2017-11-07] MEDS: Atorvastatin Calcium 20 MG TAB PO SCH (21:11)
[2017-11-08 03:56] LABS: #Eosinphils 0.2 thou/uL (0.0-0.7); #Lymphocytes 0.7 thou/uL (1.20-3.40); #Monocytes 0.5 thou/uL (0.11-0.59); %Eosinophils 1.4 % (0.0-10.0); %Lymphocytes 4.9 % (21.0-51.0); %Monocytes 3.6 % (0.0-10.0); Hemoglobin 11.2 g/dL (12.0-16.0); Mean Corpuscular HGB CONC 32.6 g/dL (32.0-36.0); Mean Corpuscular Hemoglobin 27.8 pg (27.0-31.0); Mean Corpuscular Volume 85.2 fL (78.0-98.0); Mean Platelet Volume 5.5 fL (7.4-10.4); Platelet Count 270 thou/uL (130-400); RBC Distribution Width 12.7 % (11.5-14.5); Red Blood Cell (RBC) Count 4.03 mill/uL (4.20-5.40); White Blood Cell (WBC) Count 14.4 thou/uL (4.8-10.8)
[2017-11-08 04:15] LABS: Anion Gap 13 mmol/L (10-20); BUN (Urea Nitrogen) 24 mg/dL (9.8-20.1); Calc. Creatinine Clearance 34 mL/min (70-130); Calcium 8.7 mg/dL (7.8-10.44); Carbon Dioxide 24 mmol/L (23-31); Chloride 102 mmol/L (98-107); Estimated GFR-MDRD 42; Glucose 87 mg/dL (83-110); Potassium 3.8 mmol/L (3.5-5.1); Sodium 135 mmol/L (136-145)
[2017-11-08] MEDS: Sodium Chloride 0.9% 1,000 ML IV SCH ×2 (05:32→17:29)
--- NOTE | 2017-11-08 06:06 | PDOC.FM ---
- Subjective Subjective: Catherine Koenig seen at bedside this morning. She is doing well and she has no complaints. Her mental status has no changed since admission. She denies any complaints, tolerated her procedure well yesterday. There were no acute events overnight. - Objective MAR Reviewed: Yes Vital Signs & Weight: Vital Signs (12 hours) Temp Pulse Resp BP Pulse Ox 11/08/17 04:00 97.0 F L 98 18 150/96 H 100 11/08/17 00:00 97.8 F 60 16 141/63 H 100 11/07/17 19:32 97.2 F L 82 17 152/69 H 100 11/07/17 19:27 97.0 F L 75 16 100 Weight Weight 60.6 kg I&O: 11/06/17 11/07/17 11/08/17 06:59 06:59 06:59 Intake Total 2630 Output Total 1850 Balance 780 Result Diagrams: 11/08/17 03:29 11/08/17 03:29 <Haseeb Perez - Last Filed: 11/08/17 08:19> - Objective Vital Signs & Weight: Vital Signs (12 hours) Temp Pulse Resp BP Pulse Ox 11/08/17 10:30 98.9 F 104 H 16 130/78 98 11/08/17 08:00 97.4 F L 100 16 100 11/08/17 07:35 97.4 F L 100 16 152/93 H 97 11/08/17 04:00 97.0 F L 98 18 150/96 H 100 11/08/17 00:00 97.8 F 60 16 141/63 H 100 Weight Weight 60.6 kg I&O: 11/07/17 11/08/17 11/09/17 06:59 06:59 06:59 Intake Total 2630 464 Output Total 1850 600 Balance 780 -136 Result Diagrams: 11/08/17 03:29 11/08/17 03:29 <Michael Tracy - Last Filed: 11/08/17 13:05> Phys Exam - Physical Examination Constitutional: NAD HEENT: moist MMs, sclera anicteric Neck: no JVD, supple, full ROM Respiratory: no wheezing, no rales, no rhonchi, clear to auscultation bilateral Cardiovascular: RRR, no rub 2/6 systolic murmur Gastrointestinal: soft, non-tender, no distention Musculoskeletal: no edema, pulses present Neurological: non-focal, normal sensation, moves all 4 limbs Psychiatric: normal affect Deviation from normal: A&O X1 Skin: no rash <ChrisHaseeb - Last Filed: 11/08/17 08:19> Dx/Plan (1) Sepsis secondary to UTI Code(s): A41.9 - SEPSIS, UNSPECIFIED ORGANISM; N39.0 - URINARY TRACT INFECTION, SITE NOT SPECIFIED Status: Acute (2) MONIQUE (acute kidney injury) Code(s): N17.9 - ACUTE KIDNEY FAILURE, UNSPECIFIED Status: Acute (3) Hx of hydronephrosis Code(s): Z87.448 - PERSONAL HISTORY OF OTHER DISEASES OF URINARY SYSTEM Status : Chronic (4) Hypertension Code(s): I10 - ESSENTIAL (PRIMARY) HYPERTENSION Status: Chronic (5) Chronic hyponatremia Code(s): E87.1 - HYPO-OSMOLALITY AND HYPONATREMIA Status: Chronic (6) Hyperlipidemia Code(s): E78.5 - HYPERLIPIDEMIA, UNSPECIFIED Status: Chronic - Plan Plan: 1) Sepsis 2/2 Complicated UTI-sepsis resolved - Patient has tachycardia, reported fever at home, WBC of 16,000, and source. Patient with hx of hydronephrosis 2/2 obstructing retroperitoneal mass s/p stent placement. Per ER documentation was removed 2 weeks ago although patient could not confirm this information. Patient with hx of Klebsiella UTI in 2017. S/p 1 dose of Rocephin in ED. - Dr. Estevez consulted, appreciate recs - S/p cystoscopy with stenting and retrograde pyelogram on 11/07/17 - Urine/blood cx preliminary cx growing pseudomonas, pansensitive, will likely de-escalate Abx today - Continue meropenem as patient has hx of several drug resistant UTIs - Tylenol for fever - s/p 1L NS, continue maitenance IVF of NS at 100 - likely transfer out of [facility] today 2) MONIQUE - BUN/Cr ratio of 10 suggesting either intrinsic or postrenal etiology, Cr down to 1.23 this morning - continue to monitor and avoid nephrotoxic agents 3) Chronic Hyponatremia - up to 135 this morning - patient asymptomatic 4) HLD - continue home statin 5) HTN - continue home amlodipine 6) Hx of Hydronephrosis - s/p stenting 7) Lymphoma - currently being treated with chemo by Dr. Evans 8) SCC of Vagina - followed by Dr. Evans 9) SCC of skin - followed by Dr. Evans <Haseeb Perez - Last Filed: 11/08/17 08:19> (1) Sepsis secondary to UTI Code(s): A41.9 - SEPSIS, UNSPECIFIED ORGANISM; N39.0 - URINARY TRACT INFECTION, SITE NOT SPECIFIED Status: Acute (2) MONIQUE (acute kidney injury) Code(s): N17.9 - ACUTE KIDNEY FAILURE, UNSPECIFIED Status: Acute (3) Chronic hyponatremia Code(s): E87.1 - HYPO-OSMOLALITY AND HYPONATREMIA Status: Chronic (4) Hx of hydronephrosis Code(s): Z87.448 - PERSONAL HISTORY OF OTHER DISEASES OF URINARY SYSTEM Status : Chronic (5) Lymphoma Status: Chronic (6) Squamous cell carcinoma of vagina Code(s): C52 - MALIGNANT NEOPLASM OF VAGINA Status: Chronic (7) Hypertension Code(s): I10 - ESSENTIAL (PRIMARY) HYPERTENSION Status: Chronic (8) Hyperlipidemia Code(s): E78.5 - HYPERLIPIDEMIA, UNSPECIFIED Status: Chronic (9) Squamous cell carcinoma of skin Code(s): C44.92 - SQUAMOUS CELL CARCINOMA OF SKIN, UNSPECIFIED Status: Chronic <Michael Tracy - Last Filed: 11/08/17 13:05> Attending Addendum - Attending Addendum Date/Time: 11/08/17 1124 I personally evaluated the patient and discussed the management with Dr. Perez I agree with the History, Examination, Assessment and Plan documented above with any addition or exceptions noted below.Patient with Pseudomonas sensitive to quinolones convert to Cipro po bid x 3 weeks appreciate Urology rec Patient to move to lower level care this am and make arrangement for d/c home soon if she continue stable. Plan to dismiss home with home health with PT for continued rehab. <Michael Tracy - Last Filed: 11/08/17 13:05>
--- NOTE | 2017-11-08 07:51 | PRG ---
DATE OF SERVICE: 11/08/2017 SUBJECTIVE: The patient without complaints, resting comfortably. Denies chills, flank pain. PHYSICAL EXAMINATION: VITAL SIGNS: Stable. She is afebrile. I's and O's 2630 in, 1850 out. She is positive 750 mL. ABDOMEN: Soft, nontender, nondistended. No CVA tenderness is appreciated. EXTREMITIES: No cyanosis, clubbing or edema. Urine output demonstrates clear dilute urine. This is significantly improved from pyelocystitis, sed imentous debris seen yesterday. LABORATORY DATA: White count has decreased from 22-14,000 hemoglobin 11, platelet 270, resolution of bandemia, 90 segs, BUN 24, creatinine 1.2. Blood culture 1 of 2 demonstrating Pseudomonas. Urine c ulture demonstrating Pseudomonas, currently on meropenem. IMPRESSION AND PLAN: 1. Ms. Koenig is an 82-year-old female with history of B cell lymphoma with retroperitoneal lymphaden opathy. 2. Left hydronephrosis secondary to above. 3. Current admission due to Pseudomonas, urosepsis, left hydronephrosis, unable to tolerate stent pu ll. Stent has been replaced yesterday uneventfully. Her septic parameters have improved with resolution of bandemia. She may be transferred back to medical floor. Continue indwelling Rivas catheter for n ow. Await final sensitivity of Pseudomonas. As she demonstrates bacteremia, she will require antibi otics a minimum 2-3 weeks. Pending sensitivity may require a PICC line for IV antibiotics. Consider Infectious Disease consult. When patient sensitivity has finalized, from urologic perspective, the patient may be dispositioned to home. Followup appointment with me is in chart.
[2017-11-08] MEDS: Potassium Chloride 10 MEQ TAB PO SCH (09:40)
[2017-11-08] MEDS: Enoxaparin Sodium 40 MG/0.4 ML SYRINGE SC SCH (09:40)
[2017-11-08] MEDS: Oxybutynin 5 MG TAB PO SCH (09:41)
[2017-11-08] MEDS: Meropenem 2 GM in Sodium Chloride 0.9% 100 ML IVPB SCH (10:05)
[2017-11-08] MEDS: Meropenem 2 GM, Admixture Fee 1 EACH in Sodium Chloride 0.9% 100 ML IVPB SCH (20:48)
[2017-11-08] MEDS: Atorvastatin Calcium 20 MG TAB PO SCH (20:48)
[2017-11-09] MEDS: Sodium Chloride 0.9% 1,000 ML IV SCH ×2 (02:02→12:17)
[2017-11-09 04:40] LABS: #Eosinphils 0.2 thou/uL (0.0-0.7); #Lymphocytes 0.9 thou/uL (1.20-3.40); #Monocytes 0.4 thou/uL (0.11-0.59); #Neutrophils 5.4 thou/uL (1.40-6.50); %Basophils 0.1 % (0.0-1.0); %Eosinophils 3.6 % (0.0-10.0); %Lymphocytes 13.1 % (21.0-51.0); %Monocytes 5.4 % (0.0-10.0); %Neutrophils 77.8 % (42.0-75.0); Hemoglobin 10.3 g/dL (12.0-16.0); Mean Corpuscular HGB CONC 33.2 g/dL (32.0-36.0); Mean Corpuscular Hemoglobin 28.3 pg (27.0-31.0); Mean Corpuscular Volume 85.5 fL (78.0-98.0); Mean Platelet Volume 5.8 fL (7.4-10.4); Platelet Count 280 thou/uL (130-400); RBC Distribution Width 12.6 % (11.5-14.5); Red Blood Cell (RBC) Count 3.63 mill/uL (4.20-5.40); White Blood Cell (WBC) Count 6.9 thou/uL (4.8-10.8)
[2017-11-09 04:51] LABS: Anion Gap 10 mmol/L (10-20); BUN (Urea Nitrogen) 22 mg/dL (9.8-20.1); Calc. Creatinine Clearance 40 mL/min (70-130); Calcium 8.2 mg/dL (7.8-10.44); Carbon Dioxide 23 mmol/L (23-31); Chloride 106 mmol/L (98-107); Estimated GFR-MDRD 49; Glucose 75 mg/dL (83-110); Potassium 3.3 mmol/L (3.5-5.1); Sodium 136 mmol/L (136-145)
--- NOTE | 2017-11-09 05:08 | CON ---
DATE OF CONSULTATION: 11/08/2017 REASON FOR CONSULTATION: Pyelonephritis with obstruction. HISTORY OF PRESENT ILLNESS: An 82-year-old patient who has a history of hypertension and lymphoma wi th an obstructing retroperitoneal mass leading to hydronephrosis. She is followed by Dr. Evans and has had treatment with chemotherapy still with residual retroperitoneal mass/fibrosis. She had a pr evious ureteral stents, which had been exchanged every 3-4 months; last exchange in July,. Rec ently an attempt at removal of the stent with observation was decided upon, which was carried out on 08/11/2017. The patient did well and then subsequent followups without any evidence of inflammatory process or obstruction. The patient then developed new onset of weakness and fever and change in men mikki status associated with dysuria and suprapubic abdominal pain. PHYSICAL EXAMINATION: Initial findings included: VITAL SIGNS: BP 170/90, heart rate 109, respirations 22. T-max 99.2, O2 sat 94%. GENERAL: She was drowsy, but arousable. HEART AND LUNG: Examination was normal except for tachycardia. ABDOMEN: Appeared soft. LABORATORY DATA: White cell count 22,000 with platelets 323 with hemoglobin 12, creatinine 1.40. Li apollo profile was within normal limits. Urinalysis with greater than 50,000 WBCs. The patient had an abdomen and pelvis CT scan, which demonstrated severe left hydronephrosis, which is new since prior e xam. Small amount of fluid in the left upper quadrant and some hepatic cysts; in view of that, the p atbartolo underwent placement of a stent by Dr. Estevez on the same day. Microbiology thus far yiel ded Pseudomonas aeruginosa in one set of blood cultures and urine culture with a chester susceptible phen otype. Currently, Ms. Koenig is awake. She knows she is seated in the hospital, but could not tell me the na me of the hospital, could not tell me the date either. Denies headaches, visual symptoms, sore throa t, odynophagia, dysphagia, no cough, sputum production or chest pain. A little bit of abdominal pain in the flank area. No back pain, no joint symptoms. PAST MEDICAL HISTORY: Includes hypertension, squamous cell carcinoma of the vagina and squamous cell carcinoma of skin, lymphoma with 8 rounds of chemotherapy and hydronephrosis from the area of involv ement by lymphoma with management with stents. Recently, family decided for stent removal, whi ch was accomplished in July and it worked until now. PAST SURGICAL HISTORY: Hysterectomy, stent placement and replacements, retroperitoneal mass biopsy. FAMILY HISTORY: Noncontributory. SOCIAL HISTORY: Never a smoker. CURRENT MEDICATIONS: Include atorvastatin, docusate, Lovenox, meropenem, ondansetron, potassium YUSRA L SIGNS: T-max 99.8. PHYSICAL EXAMINATION: VITAL SIGNS: BP 130/80, pulse 88, respirations 18, O2 sat 97%. SKIN: Shows no areas of skin breakdown. Patient has a peripheral IV access and has an indwelling Fo becca catheter. I's and O's are positive 700 and 1000. There is no lymphadenopathy. HEENT: Ocular movements conjugate. Oral cavity with artificial dentures. NECK: Supple. LUNGS: With symmetric clear breath sounds. HEART: S1, S2, regular rate. No S3 or S4. ABDOMEN: Soft and not distended, mild tenderness in the right flank and suprapubic area. EXTREMITIES: No joint inflammatory activity, evidence of osteoarthrosis. Pulses are 1+ in dorsalis pedis. She moves extremities equally. Plantar responses are flexure. NEUROLOGIC: She is awake, knows her name. She knew she was in the hospital, could not tell me the n autumn of the hospital. Otherwise, her recollection is quite limited. White cell count 60.8, and now 14, hemoglobin 12 and 11, platelets 338 and 270, 90% neutrophils. Sod ium 131, creatinine 1.6 down to 1.23. Liver profile normal. Albumin is 4.3. Urinalysis as noted ab ove. The patient had a chest x-ray this admission, which did not show any acute pulmonary findings. ASSESSMENT: 1. Lymphoma after 8 rounds of chemotherapy with persistence of obstruction of the left ureter. 2. Pyelonephritis with bacteremia secondary to Pseudomonas aeruginosa with a fairly susceptible phen otype. DISCUSSION: The patient has had the stent placement with marked improvement in clinical findings and would advise continuation of antimicrobial therapy and transition to quinolones, which can be eventu ally transitioned to oral administration for discharge planning. Duration of therapy is around 14 da ys approximately. It looks like she failed the attempt to keep her without stents. She will continu e to require the device to prevent obstruction in the long-term. She will be at risk for recurring e pisodes of urinary tract infection. In that regard, no evidence of other sites of involvement at thi s point in time.
--- NOTE | 2017-11-09 06:18 | PDOC.FM ---
- Subjective Subjective: Catherine Koenig seen at bedside this morning. No acute events overnight. No complaints this morning. Denies any pain, fever, chills, chest pain, abd pain, n/v. - Objective MAR Reviewed: Yes Vital Signs & Weight: Vital Signs (12 hours) Temp Pulse Resp BP Pulse Ox 11/09/17 04:42 98 F 77 18 175/76 H 93 L 11/09/17 00:28 98.4 F 81 16 149/74 H 93 L 11/08/17 20:14 99.3 F 88 18 138/82 97 11/08/17 20:00 99.3 F 88 18 97 Weight Weight 60.6 kg I&O: 11/07/17 11/08/17 11/09/17 06:59 06:59 06:59 Intake Total 2630 3619 Output Total 1850 900 Balance 780 2719 Result Diagrams: 11/09/17 03:49 11/09/17 03:49 <Haseeb Perez - Last Filed: 11/09/17 09:08> - Objective Vital Signs & Weight: Vital Signs (12 hours) Temp Pulse Resp BP Pulse Ox 11/09/17 09:31 98.1 F 96 16 95 11/09/17 07:16 98.1 F 96 16 157/93 H 95 11/09/17 04:42 98 F 77 18 175/76 H 93 L 11/09/17 00:28 98.4 F 81 16 149/74 H 93 L Weight Weight 60.6 kg I&O: 11/08/17 11/09/17 11/10/17 06:59 06:59 06:59 Intake Total 2630 3619 Output Total 1850 1700 1275 Balance 780 1919 -1275 Result Diagrams: 11/09/17 03:49 11/09/17 03:49 <Michael Tracy - Last Filed: 11/09/17 11:37> Phys Exam - Physical Examination Constitutional: NAD HEENT: moist MMs, sclera anicteric Neck: no JVD, supple, full ROM Respiratory: no wheezing, no rales, no rhonchi, clear to auscultation bilateral Cardiovascular: RRR, no significant murmur Gastrointestinal: soft, non-tender, no distention Musculoskeletal: no edema, pulses present Neurological: non-focal, normal sensation, moves all 4 limbs Psychiatric: normal affect Deviation from normal: a&o X2 this morning, improvement from yesterday Skin: no rash <ChrisHaseeb - Last Filed: 11/09/17 09:08> Dx/Plan (1) Sepsis secondary to UTI Code(s): A41.9 - SEPSIS, UNSPECIFIED ORGANISM; N39.0 - URINARY TRACT INFECTION, SITE NOT SPECIFIED Status: Acute (2) MONIQUE (acute kidney injury) Code(s): N17.9 - ACUTE KIDNEY FAILURE, UNSPECIFIED Status: Acute (3) Hx of hydronephrosis Code(s): Z87.448 - PERSONAL HISTORY OF OTHER DISEASES OF URINARY SYSTEM Status : Chronic (4) Hypertension Code(s): I10 - ESSENTIAL (PRIMARY) HYPERTENSION Status: Chronic (5) Chronic hyponatremia Code(s): E87.1 - HYPO-OSMOLALITY AND HYPONATREMIA Status: Chronic (6) Hyperlipidemia Code(s): E78.5 - HYPERLIPIDEMIA, UNSPECIFIED Status: Chronic - Plan Plan: 1) Sepsis 2/2 Complicated UTI-sepsis resolved - Patient has tachycardia, reported fever at home, WBC of 16,000, and source. Patient with hx of hydronephrosis 2/2 obstructing retroperitoneal mass s/p stent placement. Per ER documentation was removed 2 weeks ago although patient could not confirm this information. Patient with hx of Klebsiella UTI in 2017. S/p 1 dose of Rocephin in ED. - Dr. Estevez consulted, appreciate recs - S/p cystoscopy with stenting and retrograde pyelogram on 11/07/17 - Urine/blood cx preliminary cx growing pseudomonas, pansensitive - Started on meropenem as patient has hx of several drug resistant UTIs - Tylenol for fever - s/p 1L NS, continue maitenance IVF of NS at 100 - Dr. López consulted, appreciate recs. Recommended 14 days of PO fluoroquinolone. - Likely d/c today 2) MONIQUE - BUN/Cr ratio of 10 suggesting either intrinsic or postrenal etiology, Cr down to 1.07 today - continue to monitor and avoid nephrotoxic agents 3) Chronic Hyponatremia - up to 135 this morning - patient asymptomatic 4) HLD - continue home statin 5) HTN - continue home amlodipine 6) Hx of Hydronephrosis - s/p stenting 7) Lymphoma - currently being treated with chemo by Dr. Evans 8) SCC of Vagina - followed by Dr. Evans 9) SCC of skin - followed by Dr. 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 Perez I agree with the Examination, Assessment and Plan documented above with any addition or exceptions noted below. <Michael Tracy - Last Filed: 11/09/17 11:37>
[2017-11-09] MEDS ORDERED: Potassium Chloride 20 MEQ TAB PO SCH (06:30)
[2017-11-09 07:18] VITALS: BP 157/93; TEMP 98.1
--- NOTE | 2017-11-09 07:36 | PRG ---
DATE OF SERVICE: 11/09/2017 SUBJECTIVE: The patient is resting comfortably. Denies flank pain, fever or chills. PHYSICAL EXAMINATION: VITAL SIGNS: Stable, afebrile. Urine output clear with minor sediment. ABDOMEN: Soft, nontender, nondistended. No CVA tenderness, no suprapubic tenderness is appreciated. : Urine output clear with mild sediment. EXTREMITIES: No cyanosis, clubbing or edema. LABORATORY DATA: White count normalized to 6.9, hemoglobin 10, platelet 280, creatinine has returned to her baseline of 1.0. Admitted with creatinine of 1.6. Urine culture; Pseudomonas. Blood culture 1 of 2 positive for Pseudomonas sensitive to quinolones, pansensitive. IMPRESSION AND PLAN: 1. Ms. Koenig is an 82-year-old female with history of B cell lymphoma with retroperitoneal lymphadenopathy, retroperitoneal fibrosis. 2. History of left hydronephrosis secondary to lymphoma. 3. History of right extrarenal pelvis with no evidence of obstructive component on functional studies. Recent CT demonstrating severe left hydro, status post stent pull, right kidney with no evidence of hydronephrosis. She presented with Pseudomonas, urosepsis, failed trial of ureteral stent removal observation. Stent has been replaced, and her septic parameters resolved. Discontinue Rivas catheter, as her urine culture and blood culture demonstrates sensitivity to quinolones, p.o. ciprofloxacin or Levaquin for 14 days. I appreciate Infectious Disease input. Followup appointment in chart as previous, 11/29/2017 at 10:00 a.m. We will continue her interval stent exchange every 3 months as she is unable to tolerate stent pull. Discontinue Rivas catheter this a.m., discharge home. KVNG
[2017-11-09] MEDS: Potassium Chloride 10 MEQ TAB PO SCH (09:14)
[2017-11-09] MEDS: Oxybutynin 5 MG TAB PO SCH (09:14)
[2017-11-09] MEDS: Enoxaparin Sodium 40 MG/0.4 ML SYRINGE SC SCH (09:14)
[2017-11-09] MEDS: Meropenem 2 GM, Admixture Fee 1 EACH in Sodium Chloride 0.9% 100 ML IVPB SCH (10:41)
--- NOTE | 2017-11-09 13:30 | DIS-2 ---
DATE OF ADMISSION: 11/06/2017 DATE OF DISCHARGE: 11/09/2017 RESIDENT: Haseeb Perez M.D. ADMITTING ATTENDING: Dr. Michael Tracy DISCHARGE ATTENDING: Dr. Michael Tracy CONSULTATIONS: 1. Dr. Estevez, Urology on 11/08/2017. 2. Dr. Al López, Infectious Disease on 11/08/2017. PROCEDURES: 1. Chest x-ray on 11/06/2017: Impression: No acute cardiopulmonary findings. Ectasia of the thora cic aorta. 2. Retrograde pyelogram on 11/07/2017: Impression: Stent placement, 1 image demonstrates a wire cu rling over the left upper quadrant and the other demonstrates a partially visualized left ureteral st ent. 3. CT abdomen and pelvis on 11/07/2017: Impression: Severe left hydronephrosis which has developed since the prior exam. Etiology for hydronephrosis is not apparent by CT. Left perinephric strandin g has developed since the prior study. Small amount of fluid in the left upper quadrant of the left hemidiaphragm and a focal fluid collection in the deep pelvis to the right of midline as described ab ove. Bibasilar lung atelectasis, hepatic cysts and left adrenal mass have been previously described and appear unchanged. 4. Urine straight cath culture from 11/06/2017 grew Pseudomonas aeruginosa pansensitive. 5. Blood culture from 11/06/2017; grew Pseudomonas aeruginosa pansensitive. 6. Second blood culture from 11/06/2017; no growth after 24 hours. PRIMARY DIAGNOSES: Sepsis secondary to complicated urinary tract infection status post placement of ureteral stent. SECONDARY DIAGNOSES: 1. Acute kidney injury. 2. History of vaginal and skin squamous cell carcinoma. 3. Lymphoma. 4. Hypertension. 5. Hyperlipidemia. 6. Chronic hyponatremia. DISCHARGE MEDICATIONS: Resume all home medications includin. Oxybutynin chloride 10 mg p.o. q.a.m. 2. Docusate sodium 100 mg p.o. daily. 3. Potassium chloride 10 mEq p.o. daily. 4. Vitamin B complex/vitamin C 1 capsule p.o. daily. 5. Vitamin D3 5000 units p.o. daily. NEW HOME MEDICATIONS: Ciprofloxacin 500 mg p.o. b.i.d. for 7 days. HOLD HOME MEDICATIONS: Simvastatin 40 mg p.o. q.p.m. and you can resume simvastatin after completion of regimen of ciprofloxacin as there is a drug interaction between the two. HISTORY OF PRESENT ILLNESS/HOSPITAL COURSE: Catherine Koenig is an 82-year-old female with past medical hi story of hypertension, hyperlipidemia, lymphoma and squamous cell carcinoma of both the skin and vagi na, who presented to the ED on 11/06/2017 with an obstructing retroperitoneal mass causing hydronephr osis, status post stent placement. She has had weakness and fever up to 102 at home prior to this ad mission. The history was limited because no family was available by phone or in person and the charlotte nt was altered compared to baseline. She was A&O x1 in the ED. She reports burning with urination a nd urinary frequency as well as suprapubic abdominal pain. The patient denied any back pain, nausea, vomiting or hematuria. According to ER documentation, the ureteral stent was removed 2 weeks ago. In the ED she received 1 liter normal saline and 2 grams Rocephin. Initial labs; white blood cell count 22.3, hemoglobin 12.2, hematocrit 35.9, platelets 323. Sodium 1 33, potassium 4.1, chloride 97, bicarbonate 25, BUN 16, creatinine 1.4, glucose 114. The patient was admitted for sepsis secondary to complicated urinary tract infection. She was contin ued on IV Rocephin. Blood and urine cultures were taken. Dr. Estevez was consulted in the ED. Dr. Estevez saw the patient on 11/07/2017 and planned for cystoscopy and left stent placement. S he also started the patient on meropenem and discontinued the Rocephin. There was gross evidence of pyelocystitis on cystoscopy. Placement of left ureteral stent was successful. The patient tolerated the procedure well. IV meropenem was continued. Culture results came back and showed pansensitive Pseudomonas in both the blood and the urine. Dr. López was consulted on 11/08/2017 for recommendatio ns on discharge antibiotics. He recommended ciprofloxacin p.o. for approximately 14 days. The charlotte nt's white blood cell count down trended after the procedure. On 11/09/2017 white blood cell count w as 6.9. Her creatinine also improved. On admission, her creatinine was 1.61, on the day of discharg e it was 1.07. The patient was afebrile for the entirety of her admission. On 11/09/2017, the patie nt was cleared for discharge by medical team as well as Dr. Estevez and Dr. López. The patient w as instructed to follow up with both Dr. López and Dr. Estevez. An appointment was set for 10:00 a.m. on 11/29/[address] Estevez. DISCHARGE DISPOSITION: Guarded. The patient should do well if she continues her antibiotics. She d oes have a moderate to severe dementia and lymphoma, but is recovering from a standpoint of her kidne y injury and infection. DISCHARGE INSTRUCTIONS: 1. Location: Home. 2. Diet: Heart healthy and diabetic diet. 3. Activity: As tolerated. 4. Follow up with Dr. Estevez and Dr. López as well as primary care provider.
--- NOTE | 2017-11-10 13:03 | EKG ---
Test Reason : Blood Pressure : / mmHG Vent. Rate : 101 BPM Atrial Rate : 101 BPM P-R Int : 172 ms QRS Dur : 098 ms QT Int : 340 ms P-R-T Axes : 052 029 031 degrees QTc Int : 440 ms Sinus tachycardia Otherwise normal ECG Confirmed by SERA RACHEL, J LUIS ([id number]), features editor NARCISO MACIAS ([id number]) on 11/10/2017 1:02:39 PM Referred By: Confirmed By:J LUIS ZAMORA MD
--- NOTE | 2017-11-12 10:24 | PQF ---
SAP Optimization Specialist Crystal Reports Winform ViewerMAYELA TERRAZAS GRADY *r [id number] [facility]- 2 [id number] CLINICAL DOCUMENTATION CLARIFICATION FORM: POST DISCHARGE Please exercise your independent, professional judgment in responding to the clarification form. Clinical indicators are provided on the bottom of this form for your review. Thank you. Please check appropriate box(s): [ x ] UTI/pyelocystitis please specify if due to or related to (as applicable) : [x ] Indwelling catheter [ ] Self-catheterization [ ] Suprapubic catheter [ ] Unable to determine etiology UTI Site/pyelocystitis: [ x ] Kidney [ ] Ureter [ ] Bladder [ ] Urethra [ ] Unable to determine Specify Organism (if known): Pseudomonas [ ] Unknown organism [ ] Contaminated urine specimen without UTI/pyelocystitis [ ] Other diagnosis [ ] Unable to determine In addition, please specify: Present on Admission (POA): [ x ] Yes [ ] No [ ] Unable to determine For continuity of documentation, please document condition throughout progress notes and discharge summary. Thank You. CLINICAL INDICATORS - SIGNS / SYMPTOMS / LABS Sepsis secondary to complicated urinary tract infection status post placement of ureteral stent. Urine straight cath culture from 11/06/2017 grew pseudomonas aeruginosa, blood culture from 11/06/17 also grew pseudomonas aerugonasa DS Patient with hx of hydronephrosis 2/2 obstructing retroperitoneal mass s/p stent placement. - PN 11/08/2017 RISK FACTORS history of ureteral stent - failed trial of ureteral stent removal - Progress note 11/09/17 TREATMENT: stent replacement - 11/07/2017 Meropenem - PN 11/09/2017 [employer] Optimization Specialist Crystal Reports Winform Viewer (This form is maintained as a part of the permanent medical record) 2015 [employer], [employer] All Rights Reserved Valencia Helm, CCS, STOCK PLAN ADMINISTRATOR, CASC [email or web address] MTDD
== END 2017-11-09 12:35 | disposition home or self-care (01) | DRG 698 ==
LOC: ERS 18:40 → T4-A 22:13 → OBSVTOIN 22:13 → IMCU/EMU 11-07 11:19 → T4-A 11-08 10:09
PROVIDERS: ADMIT Emergency Medicine; ATTEND Emergency Medicine
PROC: BT1FZZZ Fluoroscopy of Left Kidney, Ureter and Bladder (ICD-10-PCS; principal; 2017-11-07)
PROC: 0T778DZ Dilation of Left Ureter with Intraluminal Device, Via Natural or Artificial Opening Endoscopic (ICD-10-PCS; 2017-11-07)
DX: T83.511A Infection and inflammatory reaction due to indwelling urethral catheter, initial encounter (principal); A41.52 Sepsis due to Pseudomonas; N13.6 Pyonephrosis; N30.40 Irradiation cystitis without hematuria; N17.9 Acute kidney failure, unspecified; E87.1 Hypo-osmolality and hyponatremia; N13.5 Crossing vessel and stricture of ureter without hydronephrosis; Y84.2 Radiological procedure and radiotherapy as the cause of abnormal reaction of the patient, or of later complication, without mention of misadventure at the time of the procedure; I10 Essential (primary) hypertension; E78.5 Hyperlipidemia, unspecified; F03.90 Unspecified dementia, unspecified severity, without behavioral disturbance, psychotic disturbance, mood disturbance, and anxiety; C52 Malignant neoplasm of vagina; Y83.9 Surgical procedure, unspecified as the cause of abnormal reaction of the patient, or of later complication, without mention of misadventure at the time of the procedure; Z90.710 Acquired absence of both cervix and uterus; Z88.2 Allergy status to sulfonamides; Z85.72 Personal history of non-Hodgkin lymphomas
CPT/HCPCS: 36415; 51701; 71045; 74176; 74420; 80048; 80053; 81003; 81015; 82550; 82553; 82570; 83605; 83690; 84484; 84540; 85025; 87040; 87077; 87086; 87149; 87186; 90471; 90670; 93005; 93010; 96365; A4216; A4353; C1758; C1769; G0009; G8978-GP-CJ; G8979-GP-CJ; G8980-GP-CJ; G8987-GO-CI; G8988-GO-CI; G8989-GO-CI; J0696; J1650; J2185; J2405; J7050; Q9961

== ENCOUNTER 2017-12-17 10:41 | Outpatient (CLI) | payer MEDICARE, OTHER ==
[2017-12-17 12:48] LABS: #Eosinphils 0.2 thou/uL (0.0-0.7); #Lymphocytes 1.8 thou/uL (1.20-3.40); #Monocytes 0.4 thou/uL (0.11-0.59); #Neutrophils 6.3 thou/uL (1.40-6.50); %Basophils 0.5 % (0.0-1.0); %Lymphocytes 20.6 % (21.0-51.0); %Monocytes 4.9 % (0.0-10.0); Hemoglobin 11.4 g/dL (12.0-16.0); Mean Corpuscular HGB CONC 31.8 g/dL (32.0-36.0); Mean Corpuscular Hemoglobin 27.6 pg (27.0-31.0); Mean Corpuscular Volume 86.9 fL (78.0-98.0); Mean Platelet Volume 6.4 fL (7.4-10.4); Platelet Count 295 thou/uL (130-400); RBC Distribution Width 13.5 % (11.5-14.5); Red Blood Cell (RBC) Count 4.12 mill/uL (4.20-5.40); White Blood Cell (WBC) Count 8.8 thou/uL (4.8-10.8)
[2017-12-17 12:58] LABS: Prothrombin Time 13.2 SEC (12.0-14.7)
[2017-12-17 12:59] LABS: PTT 30.8 SEC (22.9-36.1)
[2017-12-17 13:06] LABS: Anion Gap 13 mmol/L (10-20); BUN (Urea Nitrogen) 17 mg/dL (9.8-20.1); Calc. Creatinine Clearance 0 mL/min (70-130); Calcium 9.8 mg/dL (7.8-10.44); Carbon Dioxide 24 mmol/L (23-31); Chloride 104 mmol/L (98-107); Estimated GFR-MDRD 42; Glucose 92 mg/dL (83-110); Potassium 3.8 mmol/L (3.5-5.1); Sodium 137 mmol/L (136-145)
== END 2017-12-17 10:42 | disposition home or self-care (01) ==
LOC: LABBT 10:41
PROVIDERS: ATTEND Urology
DX: Z01.818 Encounter for other preprocedural examination (principal); N13.30 Unspecified hydronephrosis
CPT/HCPCS: 80048; 85025; 85610; 85730; 93005; 93010

== ENCOUNTER 2017-12-31 | Day surgery (SDC) | payer MEDICARE, OTHER | END 2017-12-31 15:55 | disposition home or self-care (01) | PROC: 0T9780Z Drainage of Left Ureter with Drainage Device, Via Natural or Artificial Opening Endoscopic (ICD-10-PCS; principal; 2017-12-31) | DX: Z46.6 Encounter for fitting and adjustment of urinary device (principal); N13.30 Unspecified hydronephrosis; C84.6 Anaplastic large cell lymphoma, ALK-positive; N39.41 Urge incontinence; I12.9 Hypertensive chronic kidney disease with stage 1 through stage 4 chronic kidney disease, or unspecified chronic kidney disease; N18.9 Chronic kidney disease, unspecified; E78.5 Hyperlipidemia, unspecified; Z88.2 Allergy status to sulfonamides; Z91.012 Allergy to eggs; Z79.899 Other long term (current) drug therapy ==

== ENCOUNTER 2018-03-18 11:15 | Outpatient (CLI) | payer MEDICARE, OTHER ==
[2018-03-18 12:21] LABS: Hemoglobin 11.2 g/dL (12.0-16.0); Mean Corpuscular HGB CONC 31.4 g/dL (32.0-36.0); Mean Corpuscular Hemoglobin 27.9 pg (27.0-31.0); Mean Corpuscular Volume 88.7 fL (78.0-98.0); Mean Platelet Volume 5.8 fL (7.4-10.4); Platelet Count 418 thou/uL (130-400); RBC Distribution Width 13.2 % (11.5-14.5)
[2018-03-18 12:33] LABS: INR-International Normal Ratio 0.9; PTT 28.3 SEC (22.9-36.1); Prothrombin Time 12.6 SEC (12.0-14.7)
[2018-03-18 12:41] LABS: Anion Gap 8 mmol/L (10-20); BUN (Urea Nitrogen) 19 mg/dL (9.8-20.1); Calc. Creatinine Clearance 0 mL/min (70-130); Calcium 9.3 mg/dL (7.8-10.44); Carbon Dioxide 32 mmol/L (23-31); Chloride 101 mmol/L (98-107); Estimated GFR-MDRD 39; Glucose 101 mg/dL (83-110); Potassium 4.2 mmol/L (3.5-5.1); Sodium 137 mmol/L (136-145)
--- NOTE | 2018-03-18 13:52 | RAD ---
TWO VIEWS CHEST: History: Pre-operative. Date: 03-18-18 Comparison: 09-10-15 FINDINGS: Two views of the chest demonstrate calcification and ectasia of the aorta. The lungs are well aerated . No evidence of acute intrathoracic abnormality is seen. No evidence of effusions, pneumonia, or pne umothorax is seen. IMPRESSION: Ectasia of the aorta. Otherwise, unremarkable two views chest. Left ureteral stent is in place. POS: [facility]
--- NOTE | 2018-03-18 16:59 | EKG ---
Test Reason : Blood Pressure : / mmHG Vent. Rate : 074 BPM Atrial Rate : 074 BPM P-R Int : 172 ms QRS Dur : 090 ms QT Int : 374 ms P-R-T Axes : 077 018 001 degrees QTc Int : 415 ms Normal sinus rhythm Normal ECG When compared with ECG of 17-DEC-2017 11:51, Non-specific change in ST segment in Inferior leads T wave inversion now evident in Inferior leads Confirmed by DR. Heather CALDWELL ([id number]) on 03/18/2018 4:58:55 PM Referred By: JOSE RAMON Confirmed By:DR. Heather CALDWELL
== END 2018-03-18 11:16 | disposition home or self-care (01) ==
LOC: LABBT 11:15
PROVIDERS: ATTEND Urology
DX: Z01.818 Encounter for other preprocedural examination (principal); N13.30 Unspecified hydronephrosis; I77.819 Aortic ectasia, unspecified site
CPT/HCPCS: 71046; 80048; 81001; 85027; 85610; 85730; 87077; 87086; 87186; 93005; 93010

== ENCOUNTER 2018-04-01 08:18 | Day surgery (SDC) | payer MEDICARE, OTHER ==
[2018-03-18 11:34] VITALS: BMI 23.3
[2018-04-01] MEDS ORDERED: cefTRIAXone\\ROCEPHIN 1 GM VIAL ONE (08:40)
[2018-04-01] MEDS ORDERED: Sodium Chloride 0.9% 100 ML ONE (08:52)
--- NOTE | 2018-04-01 09:29 | RAD ---
FRONTAL VIEW ABDOMEN: KUB: INDICATIONS: Preoperative assessment. FINDINGS: A left-sided ureteral stent remains. There are calcified densities overlying the left abdomen. Find ings are similar appearing. Punctate densities are again seen overlying the pelvis. IMPRESSION: Stable examination. POS: [facility]
[2018-04-01] MEDS ORDERED: Fentanyl 100 MCG/2 ML VIAL ONE (11:13)
[2018-04-01] MEDS ORDERED: Phenazopyridine HCl 97.5 MG TABLET ONE (12:13)
--- NOTE | 2018-04-01 12:17 | OP ---
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 PROCEDURE: Cystoscopy, left retrograde pyelogram, 6 x 22 double-J ureteral stent exchange. SURGEON: Jacy Estevez D.O. ANESTHESIA: LMA general. COMPLICATIONS: None apparent. DISPOSITION: To recovery room in stable condition. INDICATIONS FOR THE PROCEDURE AND HISTORY: Ms. Koenig is an 82-year-old female who has a history of l ymphoma, retroperitoneal lymphadenopathy resulting in left hydronephrosis. She has been monitored an d managed with chronic indwelling ureteral stent for quite some time with interval every 3 months, wh ich she is tolerating uneventfully. Her moiety of the left kidney demonstrated chronic hydronephrosi s. Renal function is stable. We did give the patient a trial of managing without a stent and observ ation given age and comorbidities; however, she developed subsequent urosepsis. Therefore, she is to continue her interval stent exchange. Risks and complications and indications for the procedure was reviewed with her in detail including, but not limited to, bleeding, pain, infection, injury to magdi cent organs, urosepsis. She presents today for cystoscopy, left retrograde stent replacement. DESCRIPTION OF THE PROCEDURE: After an informed consent is signed, the patient is taken to the opera tin room, placed in a dorsal lithotomy position with the genital area prepped and draped in the usua l surgical sterile manner. Broad-spectrum antibiotics were provided. Bilateral JOSE hose, SCDs were placed. Scope was passed without difficulty again demonstrating radiation cystitis changes and telang iectasia of the trigone, with no active bleeding. There is moderate amount of debris within the blad emy which was irrigated. The left ureteral stent was removed uneventfully. There was no significant incrustation. A 0.35 sensor wire was able to be passed into the left renal pelvis without any issue s. A retrograde pyelogram was performed with 1:1 diluted contrast over 10 Greek dual-lumen access s kwesi with a wire in situ demonstrating chronically dilated left collecting system and the wire was s een in the left mid pole. A 6 x 22 double-J ureteral stent was placed without difficulty into the mi d pole with good placement. Bladder was completely emptied and she tolerated the procedure well. Liang medel is discharged with Colace 100 mg 1 p.o. b.i.d., she is to continue oxybutynin 10 mg XL 1 p.o. daily . A course of Omnicef provided for a course of 7 days. She will return to the clinic at the end of May to preop for her interval stent exchange for every 3 months.
[2018-04-01] MEDS ORDERED: Metoclopramide HCl 10 MG/2 ML VIAL ONE (13:46)
[2018-04-01] MEDS ORDERED: Lidocaine 1% PF 5 ML VIAL ONE (13:46)
[2018-04-01] MEDS ORDERED: PROPOFOL 200 MG/20 ML VIAL ONE (13:46)
[2018-04-01] MEDS ORDERED: Dexamethasone 20 MG/5 ML VIAL ONE (13:46)
[2018-04-01] MEDS ORDERED: Ondansetron PF 4 MG/2 ML Vial ONE (13:46)
--- NOTE | 2018-04-01 14:23 | RAD ---
LEFT RETROGRADE PYELOGRAM: HISTORY: Left ureteral stent and left renal calculi. FINDINGS: Two spot fluoroscopic intraoperative images during a left-sided retrograde pyelogram demonstrate hydr onephrosis. A left ureteral stent is noted on the final image. POS: [facility]
== END 2018-04-01 14:15 | disposition home or self-care (01) ==
LOC: SDC 08:18
PROVIDERS: ATTEND Urology
PROC: 0T778DZ Dilation of Left Ureter with Intraluminal Device, Via Natural or Artificial Opening Endoscopic (ICD-10-PCS; principal; 2018-04-01)
PROC: 0TP98DZ Removal of Intraluminal Device from Ureter, Via Natural or Artificial Opening Endoscopic (ICD-10-PCS; 2018-04-01)
DX: C85.90 Non-Hodgkin lymphoma, unspecified, unspecified site (principal); N13.39 Other hydronephrosis; N30.40 Irradiation cystitis without hematuria; N32.89 Other specified disorders of bladder; Z79.899 Other long term (current) drug therapy; Z88.2 Allergy status to sulfonamides; Z91.012 Allergy to eggs; Z88.8 Allergy status to other drugs, medicaments and biological substances
CPT/HCPCS: 52332; 74018; 74420; C1758; C1769; J0696; J1100; J2001; J2405; J2704; J2765; J3010; J7050

== ENCOUNTER 2018-06-19 03:01 | Outpatient (CLI) | payer MEDICARE, OTHER ==
[2018-06-19 11:45] LABS: Hemoglobin 11.7 g/dL (12.0-16.0); Mean Corpuscular Hemoglobin 28.7 pg (27.0-31.0); Mean Corpuscular Volume 89.9 fL (78.0-98.0); Mean Platelet Volume 6.1 fL (7.4-10.4); Platelet Count 301 thou/uL (130-400); RBC Distribution Width 12.2 % (11.5-14.5); Red Blood Cell (RBC) Count 4.06 mill/uL (4.20-5.40); White Blood Cell (WBC) Count 6.4 thou/uL (4.8-10.8)
[2018-06-19 11:52] LABS: INR-International Normal Ratio 0.9; PTT 29.2 SEC (22.9-36.1); Prothrombin Time 12.6 SEC (12.0-14.7)
[2018-06-19 12:10] LABS: Anion Gap 10 mmol/L (10-20); BUN (Urea Nitrogen) 21 mg/dL (9.8-20.1); Calc. Creatinine Clearance 0 mL/min (70-130); Calcium 9.6 mg/dL (7.8-10.44); Carbon Dioxide 29 mmol/L (23-31); Chloride 104 mmol/L (98-107); Estimated GFR-MDRD 35; Glucose 106 mg/dL (83-110); Potassium 4.2 mmol/L (3.5-5.1); Sodium 139 mmol/L (136-145)
--- NOTE | 2018-06-21 08:55 | EKG ---
Test Reason : Blood Pressure : / mmHG Vent. Rate : 063 BPM Atrial Rate : 063 BPM P-R Int : 192 ms QRS Dur : 096 ms QT Int : 416 ms P-R-T Axes : 026 029 023 degrees QTc Int : 425 ms Normal sinus rhythm with sinus arrhythmia Normal ECG When compared with ECG of 18-MAR-2018 12:57, No significant change was found Confirmed by DR. Radha BERRY ([id number]) on 06/21/2018 8:55:04 AM Referred By: JOSE RAMON Confirmed By:DR. Radha BERRY
== END 2018-06-19 03:02 | disposition home or self-care (01) ==
LOC: LABBT 03:01
PROVIDERS: ATTEND Urology
DX: Z01.818 Encounter for other preprocedural examination (principal)
CPT/HCPCS: 80048; 81001; 85027; 85610; 85730; 87086; 93005; 93010

== ENCOUNTER 2018-07-03 05:59 | Day surgery (SDC) | payer MEDICARE, OTHER ==
[2018-06-19 10:47] VITALS: BMI 22.4
[2018-07-03] MEDS ORDERED: cefTRIAXone\\ROCEPHIN 2 GM VIAL ONE (06:38)
[2018-07-03] MEDS ORDERED: Sodium Chloride 0.9% 100 ML ONE (06:39)
[2018-07-03] MEDS ORDERED: Fentanyl 100 MCG/2 ML VIAL ONE (07:04)
[2018-07-03] MEDS ORDERED: Iothalamate Meglumine 60% 50 ML VIAL FS ONE (07:38)
[2018-07-03] MEDS ORDERED: Phenazopyridine HCl 97.5 MG TABLET ONE (08:15)
--- NOTE | 2018-07-03 08:54 | OP ---
DATE OF PROCEDURE: 07/03/2018 PREOPERATIVE DIAGNOSES: 1. An 83-year-old female with history of left hydronephrosis secondary to lymphoma, status post chemo. 2. Persistent left hydro with chronic indwelling ureteral stent. POSTOPERATIVE DIAGNOSES: 1. An 83-year-old female with history of left hydronephrosis secondary to lymphoma, status post chemo. 2. Persistent left hydro with chronic indwelling ureteral stent. PROCEDURES PERFORMED: Cystoscopy, left retrograde, 6 x 22 double-J ureteral stent exchange. ANESTHESIA: LMA. COMPLICATIONS: None apparent. DISPOSITION: To recovery room in stable condition. INDICATIONS FOR PROCEDURE: Ms. Koenig is an 83-year-old female with history of left hydronephrosis secondary to lymphoma. She underwent chemotherapy by Dr. Evans , has a persistent residual retroperitoneal fibrosis resulting in hydronephrosis. We did try attempt of stent removal and observation however, she developed Pseudomonas urosepsis requiring replacement of stent. Currently, tolerating 3-month interval of cysto stent exchange uneventfully. She presents today for procedure. Risks and complications and indications were reviewed with patient in detail. She has desired to proceed without reservation. DESCRIPTION OF PROCEDURE: After an informed consent was signed, the patient was taken to the operating room, placed in a dorsal lithotomy position with the genital area prepped and draped in the usual surgical sterile fashion. Broad-spectrum antibiotics were provided. A 21-Kiswahili cystoscope was utilized for cystoscopy, which demonstrated some radiation cystitis changes of the bladder with no active bleeding. The previously placed left ureteral stent was visualized. She did have some moderate debris in the bladder. This was irrigated for better visualization. The previously placed stent was removed to the level of the meatus and a 0.35 Sensor wire was passed to the level of the renal pelvis mid pole. Using a dual-lumen access sheath, retrograde pyelogram was performed with 1:1 diluted contrast, which demonstrated chronic dilated left collecting system. Wire was seen in the left mid pole and a 6 x 22 double-J ureteral stent was placed without difficulty. Refill prescription for Colace b.i.d., oxybutynin 10 mg one p.o. b.i.d. provided. Ciprofloxacin for 3 days. She will follow up with me on September 02 at 1115 hours to preop. Job ID: [id number] [facility]
--- NOTE | 2018-07-03 09:06 | RAD ---
RETROGRADE PYELOGRAM: 07/03/2018 HISTORY: Cystoscopy. COMPARISON: 04/01/2018 FINDINGS: A single radiograph from a retrograde pyelogram is provided on the left. There is a wire within the ureter. There is contrast media within a partially opacified left renal collecting system, which is markedly hydronephrotic, similar when compared to prior imaging. IMPRESSION: Retrograde pyelogram, as detailed above. POS: [facility]
[2018-07-03] MEDS ORDERED: PROPOFOL 200 MG/20 ML VIAL ONE (15:03)
[2018-07-03] MEDS ORDERED: PHENYLEPHRINE-NS 100 MCG/ML 10 ML SYRINGE ONE (15:03)
[2018-07-03] MEDS ORDERED: ePHEDrine 50 MG/ML VIAL ONE (15:03)
[2018-07-03] MEDS ORDERED: Dexamethasone 20 MG/5 ML VIAL ONE (15:03)
[2018-07-03] MEDS ORDERED: Lidocaine 1% PF 5 ML VIAL ONE (15:03)
[2018-07-03] MEDS ORDERED: Ondansetron PF 4 MG/2 ML Vial ONE (15:03)
== END 2018-07-03 09:30 | disposition home or self-care (01) ==
LOC: SDC 05:59
PROVIDERS: ATTEND Urology
PROC: 0T778DZ Dilation of Left Ureter with Intraluminal Device, Via Natural or Artificial Opening Endoscopic (ICD-10-PCS; principal; 2018-07-03)
PROC: 0TP98DZ Removal of Intraluminal Device from Ureter, Via Natural or Artificial Opening Endoscopic (ICD-10-PCS; 2018-07-03)
DX: C84.6 Anaplastic large cell lymphoma, ALK-positive (principal); N13.39 Other hydronephrosis; N30.40 Irradiation cystitis without hematuria; E78.5 Hyperlipidemia, unspecified; I12.9 Hypertensive chronic kidney disease with stage 1 through stage 4 chronic kidney disease, or unspecified chronic kidney disease; N18.9 Chronic kidney disease, unspecified; Z86.73 Personal history of transient ischemic attack (TIA), and cerebral infarction without residual deficits; Z79.899 Other long term (current) drug therapy; Z88.2 Allergy status to sulfonamides; Z88.8 Allergy status to other drugs, medicaments and biological substances; Z91.012 Allergy to eggs
CPT/HCPCS: 52332; 74420; C1758; C1769; J0131; J0696; J1100; J2001; J2405; J2704; J3010; J3490; J7050; Q9961

== ENCOUNTER 2018-09-16 05:18 | Outpatient (CLI) | payer MEDICARE, OTHER ==
[2018-09-16 12:50] LABS: #Eosinphils 0.2 thou/uL (0.0-0.7); #Lymphocytes 2.7 thou/uL (1.20-3.40); #Monocytes 0.4 thou/uL (0.11-0.59); #Neutrophils 3.7 thou/uL (1.40-6.50); %Basophils 0.6 % (0.0-1.0); %Lymphocytes 38.6 % (21.0-51.0); %Monocytes 6.1 % (0.0-10.0); %Neutrophils 51.6 % (42.0-75.0); Hemoglobin 12.2 g/dL (12.0-16.0); Mean Corpuscular HGB CONC 33.2 g/dL (32.0-36.0); Mean Corpuscular Hemoglobin 28.7 pg (27.0-31.0); Mean Corpuscular Volume 86.5 fL (78.0-98.0); Mean Platelet Volume 6.2 fL (7.4-10.4); Platelet Count 347 thou/uL (130-400); RBC Distribution Width 13.5 % (11.5-14.5); Red Blood Cell (RBC) Count 4.23 mill/uL (4.20-5.40); White Blood Cell (WBC) Count 7.1 thou/uL (4.8-10.8)
[2018-09-16 13:10] LABS: Prothrombin Time 12.8 SEC (12.0-14.7)
[2018-09-16 13:18] LABS: Anion Gap 13 mmol/L (10-20); BUN (Urea Nitrogen) 14 mg/dL (9.8-20.1); Calc. Creatinine Clearance 0 mL/min (70-130); Calcium 9.6 mg/dL (7.8-10.44); Carbon Dioxide 28 mmol/L (23-31); Chloride 104 mmol/L (98-107); Estimated GFR-MDRD 39; Glucose 82 mg/dL (83-110); Sodium 141 mmol/L (136-145)
== END 2018-09-16 05:19 | disposition home or self-care (01) ==
LOC: LABBT 05:18
PROVIDERS: ATTEND Urology
DX: Z01.818 Encounter for other preprocedural examination (principal); N13.30 Unspecified hydronephrosis
CPT/HCPCS: 80048; 81001; 85025; 85610; 85730; 87086; 93005; 93010

== ENCOUNTER 2018-09-25 08:55 | Day surgery (SDC) | payer MEDICARE, OTHER ==
--- NOTE | 2018-09-25 09:53 | RAD ---
Exam: Single view of the abdomen HISTORY: Hydronephrosis COMPARISON: 04/01/2018 FINDINGS: Single view of the abdomen shows a nonspecific, nonobstructive bowel gas pattern. A left ur eteral stent is unchanged in position. No suspicious calcifications are seen. The bones are unremarkable. IMPRESSION: Stable left ureteral stent
[2018-09-25] MEDS ORDERED: Levofloxacin 500 mg/D5W 100 ml Premix Bag ONE (10:16)
[2018-09-25] MEDS ORDERED: Fentanyl 100 MCG/2 ML VIAL ONE (12:23)
[2018-09-25] MEDS ORDERED: Iothalamate Meglumine 60% 50 ML VIAL FS ONE (12:28)
[2018-09-25] MEDS ORDERED: cefTRIAXone\\ROCEPHIN 2 GM VIAL ONE (13:00)
[2018-09-25] MEDS ORDERED: Sodium Chloride 0.9% 100 ML ONE (13:00)
[2018-09-25] MEDS ORDERED: PHENYLEPHRINE-NS 100 MCG/ML 10 ML SYRINGE ONE (13:03)
[2018-09-25] MEDS ORDERED: PROPOFOL 200 MG/20 ML VIAL ONE (13:03)
[2018-09-25] MEDS ORDERED: Phenazopyridine HCl 97.5 MG TABLET ONE (13:31)
--- NOTE | 2018-09-25 15:41 | RAD ---
RETROGRADE PYELOGRAM: Date: 09/25/18 HISTORY: Hydronephrosis. COMPARISON: 07/03/18. FINDINGS: Again noted is dilatation of the left upper renal collecting system upon injection. Left ureteral alexa nt placed following injection. IMPRESSION: Stable appearing dilated left upper renal collecting system. POS: [facility]
--- NOTE | 2018-09-25 20:34 | OP ---
DATE OF PROCEDURE: 09/25/2018 PREOPERATIVE DIAGNOSES: 1. 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 Evans. 2. History of vaginal squamous cell carcinoma. 3. 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 POSTOPERATIVE DIAGNOSES: 1. 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 Evans. 2. History of vaginal squamous cell carcinoma. 3. 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 PROCEDURES PERFORMED: Cystoscopy, left retrograde pyelogram, 6 x 22 double-J ureteral stent exchange. ANESTHESIA: LMA. COMPLICATIONS: None apparent. DISPOSITION: To recovery room in stable condition. INDICATIONS FOR PROCEDURE AND HISTORY: Ms. 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 She has persistent hydronephrosis. Last staging CT about a year ago demonstrating stable findings. She presents today for interval stent exchange. We gave her a trial of observation without stent, however, developed urosepsis. The patient and desired to proceed with interval stent exchange which she is tolerating every 3 months without significant issues. DESCRIPTION OF PROCEDURE: After an informed consent was signed, the patient was taken to the operating room, placed in a dorsal lithotomy position with the genital area prepped and draped in the usual surgical sterile fashion. Bilateral JOSE hose and SCDs were provided. Rocephin and Levaquin were provided. Upon entering the bladder, we did obtain evidence of cystitis. Although her preop urine culture was negative, she has findings of sediment debris in her bladder consistent with cystitis. We irrigated the bladder. I did provide broad-spectrum coverage with Levaquin and Rocephin based on a prior urine culture. A pre-existing ureteral stent was removed at the level of the meatus and a 0.35 Sensor wire passed to the level of the renal pelvis. Retrograde pyelogram was performed with 1:1 diluted contrast, which demonstrated chronic hydronephrosis and splaying of the calices consistent with retroperitoneal lymphadenopathy. The wire was negotiated into the left lower pole and a 6 x 22 double-J ureteral stent was passed without difficulty. Wire was then completely removed. The bladder was emptied. She was discharged with ciprofloxacin for 7 days. Refill for oxybutynin 10 mg one p.o. daily, Colace 100 mg one p.o. b.i.d. for 3 months refill. She will follow up with me in December 06 at 9 :45 to preop for interval stent exchange for tentative date would be January 01. She will require straight cath, UA, C and S. Plan staging CT prior to interval stent exchange in 3 months. Job ID: [id number] [facility], [place]
== END 2018-09-25 15:53 | disposition home or self-care (01) ==
LOC: SDC 08:55
PROVIDERS: ATTEND Urology
PROC: 0T778DZ Dilation of Left Ureter with Intraluminal Device, Via Natural or Artificial Opening Endoscopic (ICD-10-PCS; principal; 2018-09-25)
PROC: 0TP98DZ Removal of Intraluminal Device from Ureter, Via Natural or Artificial Opening Endoscopic (ICD-10-PCS; 2018-09-25)
DX: C83.33 Diffuse large B-cell lymphoma, intra-abdominal lymph nodes (principal); N13.39 Other hydronephrosis; E78.5 Hyperlipidemia, unspecified; I12.9 Hypertensive chronic kidney disease with stage 1 through stage 4 chronic kidney disease, or unspecified chronic kidney disease; N18.9 Chronic kidney disease, unspecified; Z86.73 Personal history of transient ischemic attack (TIA), and cerebral infarction without residual deficits; Z79.899 Other long term (current) drug therapy; Z88.2 Allergy status to sulfonamides; Z88.8 Allergy status to other drugs, medicaments and biological substances; Z91.012 Allergy to eggs; Z98.890 Other specified postprocedural states
CPT/HCPCS: 52332; 74018; 74420; C1758; C1769; J0696; J1956; J3010; J3490; Q9961

== ENCOUNTER 2018-12-16 08:26 | Outpatient (CLI) | payer MEDICARE, OTHER ==
--- NOTE | 2018-12-16 12:12 | CT ---
NONCONTRAST CT ABDOMEN AND PELVIS: Date: 12/16/18 HISTORY: Chronic kidney disease. Left hydronephrosis. COMPARISON: 11/07/17. FINDINGS: There is bibasilar atelectasis. Vascular calcifications are seen in the abdominal aorta and involving the iliac arteries. A left ureteral stent is now noted in place. There is persistent moderate to severe left hydronephros is. The degree of hydronephrosis has improved from the prior exam, but does persist. There is mild le ft perinephric stranding present, but the fluid and stranding has significantly improved from the spencer or exam. There has also been resolution of the small left pleural effusion. No renal or ureteral calc ulus is seen. There is no hydronephrosis seen on the right. Hypodense hepatic lesions are again seen scattered within each lobe of the liver, similar to the prio r exam, as well as postcontrast study on 07/18/17 suggesting hepatic cysts. The low density masses associated with the left adrenal gland are seen, which may actually represent a bilobed mass or two separate masses, one of which does demonstrate slight increased attenuation. Th anderson adrenal lesions have been present since study in 2012 and there are areas which do demonstrate fa t attenuation and may represent adrenal myelolipomas. The spleen, pancreas, right adrenal gland, and right kidney demonstrate a grossly normal nonenhanced CT appearance. There is colonic diverticulosis. The appendix is visualized and normal in caliber. No free fluid, fluid collection, or lymphadenopathy seen on this nonenhanced CT scan exam. Multilevel degenerative changes are seen in the spine with right convex scoliosis of thoracolumbar sp ine. The fluid collection appears to be seen in the lower pelvis and is again noted, previously measuring 5.1 cm x 5.2 cm, and now measures 4.6 cm x 3.0 cm. IMPRESSION: 1. Interval placement of left ureteral stent compared to prior study. There is persistent moderate t o severe left hydronephrosis, but the degree of hydronephrosis does appear improved. There has also b een interval improvement in left perinephric inflammatory changes and fluid; a small amount of perine phric stranding seen on today's exam. 2. Stable left adrenal nodules vs. lobulated lesion. This has been present since study in 2012. 3. Stable hypodense hepatic lesions likely related to hepatic cysts. 4. Hysterectomy. 5. Interval decrease in size of fluid collection in right hemipelvis. 6. Additional findings as described above. POS: [facility]
== END 2018-12-16 08:27 | disposition home or self-care (01) ==
LOC: CT 08:26
PROVIDERS: ATTEND Urology
DX: N18.9 Chronic kidney disease, unspecified (principal); C84.7 Anaplastic large cell lymphoma, ALK-negative; N13.30 Unspecified hydronephrosis; Z90.710 Acquired absence of both cervix and uterus
CPT/HCPCS: 74176; 80048; 81001; 85025; 85610; 85730; 87086; 93005; 93010

== ENCOUNTER 2018-12-16 08:47 | Outpatient (CLI) | payer MEDICARE, OTHER ==
[2018-12-16 11:48] LABS: #Eosinphils 0.2 thou/uL (0.0-0.7); #Lymphocytes 1.8 thou/uL (1.20-3.40); #Monocytes 0.3 thou/uL (0.11-0.59); #Neutrophils 4.7 thou/uL (1.40-6.50); %Basophils 0.3 % (0.0-1.0); %Eosinophils 2.6 % (0.0-10.0); %Lymphocytes 25.2 % (21.0-51.0); %Monocytes 4.8 % (0.0-10.0); Hemoglobin 12.1 g/dL (12.0-16.0); Mean Corpuscular HGB CONC 32.7 g/dL (32.0-36.0); Mean Corpuscular Volume 88.9 fL (78.0-98.0); Mean Platelet Volume 5.8 fL (7.4-10.4); Platelet Count 496 thou/uL (130-400); RBC Distribution Width 12.9 % (11.5-14.5); Red Blood Cell (RBC) Count 4.17 mill/uL (4.20-5.40); White Blood Cell (WBC) Count 7.1 thou/uL (4.8-10.8)
[2018-12-16 11:50] LABS: PTT 28.8 SEC (22.9-36.1); Prothrombin Time 13.1 SEC (12.0-14.7)
[2018-12-16 12:26] LABS: Anion Gap 13 mmol/L (10-20); BUN (Urea Nitrogen) 16 mg/dL (9.8-20.1); Calc. Creatinine Clearance 0 mL/min (70-130); Calcium 9.7 mg/dL (7.8-10.44); Carbon Dioxide 28 mmol/L (23-31); Chloride 102 mmol/L (98-107); Estimated GFR-MDRD 34; Glucose 100 mg/dL (83-110); Potassium 4.1 mmol/L (3.5-5.1); Sodium 139 mmol/L (136-145)
--- NOTE | 2018-12-16 15:39 | EKG ---
Test Reason : Blood Pressure : / mmHG Vent. Rate : 060 BPM Atrial Rate : 060 BPM P-R Int : 196 ms QRS Dur : 104 ms QT Int : 428 ms P-R-T Axes : 047 002 004 degrees QTc Int : 428 ms Normal sinus rhythm Moderate voltage criteria for LVH, may be normal variant Abnormal ECG When compared with ECG of 16-SEP-2018 12:08, Questionable change in initial forces of Inferior leads Confirmed by CORDELL RACHEL, SAshley ([id number]) on 12/16/2018 3:39:18 PM Referred By: JOSE RAMON Confirmed By:DR. Everardo LANDA MD
== END 2018-12-16 08:48 | disposition home or self-care (01) ==
LOC: LABBT 08:47
PROVIDERS: ATTEND Urology
DX: Z01.818 Encounter for other preprocedural examination (principal); N13.30 Unspecified hydronephrosis; N39.41 Urge incontinence
CPT/HCPCS: 80048; 85025; 85610; 85730; 93005; 93010

== ENCOUNTER 2018-12-25 06:20 | Day surgery (SDC) | payer MEDICARE, OTHER ==
[2018-12-16 10:46] VITALS: BMI 23.9
[2018-12-25] MEDS ORDERED: Sodium Chloride 0.9% 100 ML ONE (08:25)
[2018-12-25] MEDS ORDERED: Piperacillin/Tazobactam 3.375 GM VIAL ONE (08:25)
[2018-12-25] MEDS ORDERED: Fentanyl 100 MCG/2 ML VIAL ONE (08:31)
--- NOTE | 2018-12-25 08:55 | RAD ---
ABDOMEN ONE VIEW: HISTORY: Preop. COMPARISON: CT stone protocol from 12/16/2018. FINDINGS: Similar appearance of the left double J ureteral stent. No abnormal calcifications projecting over t he renal shadows. No dilated air-filled loops of large or small bowel. IMPRESSION: Similar appearance of the left double-J ureteral stent. POS: CET
--- NOTE | 2018-12-25 09:09 | RAD ---
CHEST TWO VIEWS: HISTORY: Preop. COMPARISON: Radiograph from 2018. FINDINGS: Chronic elevation of the left hemidiaphragm. Mild vascular calcification of the aorta. No confluent air space consolidation, pneumothorax, or effusion. There is a compression deformity at what appears to be T12. There is an old left humeral neck fractu re. IMPRESSION: Chronic findings. No acute intrathoracic abnormality. POS: CET
[2018-12-25] MEDS ORDERED: Phenazopyridine HCl 97.5 MG TABLET ONE (10:18)
[2018-12-25] MEDS ORDERED: Oxybutynin 5 MG TAB ONE (10:18)
--- NOTE | 2018-12-25 10:26 | OP ---
DATE OF PROCEDURE: 12/25/2018 PREOPERATIVE DIAGNOSES: An 83-year-old female with history of chronic left hydronephrosis, secondary to retroperitoneal lymphadenopathy, lymphoma, status post chemotherapy followed by Dr. Evans. POSTOPERATIVE DIAGNOSES: An 83-year-old female with history of chronic left hydronephrosis, secondary to retroperitoneal lymphadenopathy, lymphoma, status post chemotherapy followed by Dr. Evans. PROCEDURE PERFORMED: Cystoscopy, left retrograde, 6 x 22 double-J ureteral stent exchange. ANESTHESIA: LMA. COMPLICATIONS: None apparent. DISPOSITION: To recovery room in stable condition. INDICATIONS FOR PROCEDURE AND HISTORY: Ms. 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 She has had persistent hydronephrosis on the morphology of her CT. Underwent recent staging CT scan with no obvious changes of concern. She has a chronic left hydronephrotic moiety. We gave her a trial of conservative observation without stent, given her advanced age; however, developed urosepsis, therefore unable to tolerate stent pull. The patient and desires to continue interval stent exchange. Risks, complications, and indications again reviewed including, but not limited to, bleeding, pain, infection, injury to adjacent organs, urosepsis, stricture formation, ureteral/renal/bladder injury. All questions answered to their satisfaction. She desired to proceed. DESCRIPTION OF PROCEDURE: After an informed consent was signed, the patient was taken to the operating room, placed in a dorsal lithotomy position with the genital area prepped and draped in the usual surgical sterile fashion. As previous, she had severe atrophic changes of the perineum, consistent with her age and radiation changes of her perineum as she has history of squamous cell carcinoma. Cystoscopy again demonstrated radiation cystitis changes. There was debris within the bladder making the cystoscopy somewhat suboptimal and this was irrigated and flushed. She had a ureteral stent at the level of the bladder appropriate and this was removed to the level of the meatus with grasping forceps. A 0.35 Sensor wire was passed through the ureteral stent. There was some resistance; however, I was able to pass the wire through the pre-existing stent. We negotiated this into the left lower pole. A 10-Grenadian dual-lumen access sheath was utilized to perform retrograde pyelogram demonstrating chronic nephrotic changes. A wire was negotiated into the left mid pole and a 6 x 22 double-J ureteral stent was passed without difficulty. All wires and catheters were subsequently removed. She tolerated the procedure well and transported to the recovery room in stable condition. She is discharged with Omnicef 300 mg one p.o. b.i.d. for 5 days, Colace 100 mg one p.o. b.i.d., oxybutynin refill 10 mg one p.o. daily #3 refills. She will follow up with me sometime in February, she will require interval 3 months stent exchange sometime early March. Job ID: [id number]
[2018-12-25] MEDS ORDERED: Iothalamate Meglumine 60% 50 ML VIAL FS ONE (11:02)
--- NOTE | 2018-12-25 11:03 | RAD ---
RETROGRADE IVP: HISTORY: Ureteral stent. FINDINGS: Intraoperative fluoroscopy is provided for Dr. Estevez. Two images demonstrate contrast opacifyi ng the left intrarenal collecting system. There is a left side ureteral stent with a proximal pigtai l at the level of the left renal pelvis and the distal pigtail at the expected level of the urinary b ladder. IMPRESSION: Intraoperative fluoroscopy as above. POS: OFF
== END 2018-12-25 12:00 | disposition home or self-care (01) ==
LOC: SDC 06:20
PROVIDERS: ATTEND Urology
PROC: 0T778DZ Dilation of Left Ureter with Intraluminal Device, Via Natural or Artificial Opening Endoscopic (ICD-10-PCS; principal; 2018-12-25)
PROC: 0TP98DZ Removal of Intraluminal Device from Ureter, Via Natural or Artificial Opening Endoscopic (ICD-10-PCS; 2018-12-25)
DX: C84.7 Anaplastic large cell lymphoma, ALK-negative (principal); N13.39 Other hydronephrosis; I12.9 Hypertensive chronic kidney disease with stage 1 through stage 4 chronic kidney disease, or unspecified chronic kidney disease; N18.9 Chronic kidney disease, unspecified; E87.1 Hypo-osmolality and hyponatremia; N30.40 Irradiation cystitis without hematuria; N39.41 Urge incontinence; E78.5 Hyperlipidemia, unspecified; Z86.73 Personal history of transient ischemic attack (TIA), and cerebral infarction without residual deficits; Z79.899 Other long term (current) drug therapy; Z88.2 Allergy status to sulfonamides; Z88.8 Allergy status to other drugs, medicaments and biological substances; Z91.012 Allergy to eggs
CPT/HCPCS: 71046; 74018; 74420; C1758; C1769; J2543; J3010; J3490

== ENCOUNTER 2019-03-12 09:47 | Outpatient (CLI) | payer MEDICARE, OTHER ==
[2019-03-12 14:25] LABS: Hemoglobin 12.3 g/dL (12.0-16.0); Mean Corpuscular HGB CONC 32.8 g/dL (32.0-36.0); Mean Corpuscular Hemoglobin 28.8 pg (27.0-31.0); Mean Platelet Volume 6.7 fL (7.4-10.4); Platelet Count 415 thou/uL (130-400); RBC Distribution Width 12.7 % (11.5-14.5); Red Blood Cell (RBC) Count 4.28 mill/uL (4.20-5.40); White Blood Cell (WBC) Count 9.5 thou/uL (4.8-10.8)
[2019-03-12 14:27] LABS: INR-International Normal Ratio 1.1; PTT 31.4 SEC (22.9-36.1); Prothrombin Time 13.8 SEC (12.0-14.7)
[2019-03-12 14:40] LABS: Anion Gap 14 mmol/L (10-20); BUN (Urea Nitrogen) 17 mg/dL (9.8-20.1); Calc. Creatinine Clearance 0 mL/min (70-130); Calcium 9.4 mg/dL (7.8-10.44); Carbon Dioxide 26 mmol/L (23-31); Chloride 100 mmol/L (98-107); Estimated GFR-MDRD 38; Glucose 95 mg/dL (83-110); Sodium 136 mmol/L (136-145)
--- NOTE | 2019-03-12 17:07 | EKG ---
Test Reason : Blood Pressure : / mmHG Vent. Rate : 084 BPM Atrial Rate : 441 BPM P-R Int : 000 ms QRS Dur : 104 ms QT Int : 382 ms P-R-T Axes : 000 001 -09 degrees QTc Int : 451 ms Unusual P axis, possible ectopic atrial rhythm Premature atrial complexes Voltage criteria for left ventricular hypertrophy Anterior infarct , age undetermined Abnormal ECG Confirmed by ELIZABETH DANIEL ([id number]) on 03/12/2019 5:07:36 PM Referred By: JACKY Confirmed By:ELIZABETH DANIEL
== END 2019-03-12 09:48 | disposition home or self-care (01) ==
LOC: LABBT 09:47
PROVIDERS: ATTEND Urology
DX: Z01.818 Encounter for other preprocedural examination (principal); N13.30 Unspecified hydronephrosis
CPT/HCPCS: 80048; 81001; 85027; 85610; 85730; 87077; 87086; 93005; 93010

== ENCOUNTER 2019-03-26 05:52 | Day surgery (SDC) | payer MEDICARE, OTHER ==
[2019-03-12 12:33] VITALS: BMI 23.7
[2019-03-26] MEDS ORDERED: cefTRIAXone\\ROCEPHIN 2 GM VIAL ONE (06:06)
[2019-03-26] MEDS ORDERED: Sodium Chloride 0.9% 100 ML ONE (06:07)
[2019-03-26] MEDS ORDERED: Fentanyl 100 MCG/2 ML VIAL ONE (06:53)
[2019-03-26] MEDS ORDERED: Levofloxacin 500 mg/D5W 100 ml Premix Bag ONE (07:07)
[2019-03-26] MEDS ORDERED: Iothalamate Meglumine 60% 50 ML VIAL FS ONE (07:10)
[2019-03-26] MEDS ORDERED: Phenazopyridine HCl 97.5 MG TABLET ONE ×2 (08:44→08:45)
[2019-03-26] MEDS ORDERED: PHENYLEPHRINE-NS 100 MCG/ML 10 ML SYRINGE ONE (09:34)
[2019-03-26] MEDS ORDERED: PROPOFOL 200 MG/20 ML VIAL ONE (09:34)
[2019-03-26] MEDS ORDERED: ePHEDrine/0.9% NaCl/PF SYRINGE 50 mg/10 ml ONE (09:34)
--- NOTE | 2019-03-26 09:55 | RAD ---
LEFT RETROGRADE PYELOGRAM: HISTORY: Hydronephrosis. FINDINGS/IMPRESSION: Two intraoperative images of the left retrograde pyelogram demonstrate placement of a left ureteral s tent. POS: JOHNNIE
--- NOTE | 2019-03-26 10:49 | OP ---
DATE OF PROCEDURE: 03/26/2019 PREOPERATIVE DIAGNOSES: 1. An 83-year-old female with history of chronic left hydronephrosis secondary to retroperitoneal lymphadenopathy with chronic history of B-cell lymphoma. 2. History of squamous cell carcinoma of the vagina, status post RT. POSTOPERATIVE DIAGNOSES: 1. An 83-year-old female with history of chronic left hydronephrosis secondary to retroperitoneal lymphadenopathy with chronic history of B-cell lymphoma. 2. History of squamous cell carcinoma of the vagina, status post RT. PROCEDURES PERFORMED: Cystoscopy, left retrograde pyelogram, and 6 x 22 double-J ureteral stent exchange. ANESTHESIA: TIVA. COMPLICATIONS: None apparent. INDICATIONS FOR THE PROCEDURE AND HISTORY: Ms. Koenig is an 83-year-old female with history of chronic left hydronephrosis secondary to retroperitoneal lymphadenopathy due to lymphoma. She has had persistent hydronephrosis, undergoing interval stent exchange. Risks and complications and indications of the procedure reviewed and she desired to proceed. DESCRIPTION OF PROCEDURE: After an informed consent was signed, the patient was taken to the operating room, placed in a dorsal lithotomy position with the genital area prepped and draped in the usual surgical sterile fashion. A 21-Maltese cystoscope was utilized for cystoscopy. Upon entering the bladder, there was moderate amount of debris which was irrigated. There was evidence of radiation cystitis changes; however, no evidence of intrinsic bladder mass. The UOs identified in normal orthotopic position. The previously placed ureteral stent was removed to the level of the meatus. The distal tail was mildly encrusted; however, I was able to pass a 0.35 Sensor wire through the stent without significant issues. A dual-lumen access sheath was then utilized to perform a retrograde pyelogram, which demonstrated chronic hydronephrotic changes with splaying of the collecting system consistent with perihilar and retroperitoneal lymphadenopathy. The Sensor wire was seen in the left upper pole, and a 6 x 22 double-J ureteral stent was passed without difficulty. She tolerated the procedure well and transported to the recovery room in stable condition. She was discharged with ciprofloxacin for course of 5 days, oxybutynin refill #30 one p.o. daily, and Colace 100 mg one p.o. b.i.d. Her preop EKG demonstrated some irregular changes. I will see her April 16 at 3:30 to discuss elective Cardiology consultation and evaluation. From urologic perspective, I will continue to exchange her stent every 3 months as she is tolerating it without significant issues. Job ID: [id number]
== END 2019-03-26 10:51 | disposition home or self-care (01) ==
LOC: SDC 05:52
PROVIDERS: ATTEND Urology
PROC: 0T778DZ Dilation of Left Ureter with Intraluminal Device, Via Natural or Artificial Opening Endoscopic (ICD-10-PCS; principal; 2019-03-26)
DX: N13.30 Unspecified hydronephrosis (principal); N39.41 Urge incontinence; I10 Essential (primary) hypertension; E78.5 Hyperlipidemia, unspecified; Z88.2 Allergy status to sulfonamides; Z88.8 Allergy status to other drugs, medicaments and biological substances; Z91.012 Allergy to eggs; Z79.899 Other long term (current) drug therapy
CPT/HCPCS: 74420; C1758; C1769; J0696; J1956; J2704; J3010; J3490

== ENCOUNTER 2019-06-18 08:01 | Outpatient (CLI) | payer MEDICARE, OTHER ==
[2019-06-18 12:36] LABS: Hemoglobin 12.8 g/dL (12.0-16.0); Mean Corpuscular HGB CONC 31.9 g/dL (32.0-36.0); Mean Corpuscular Hemoglobin 28.2 pg (27.0-31.0); Mean Corpuscular Volume 88.4 fL (78.0-98.0); Mean Platelet Volume 6.1 fL (7.4-10.4); Platelet Count 336 thou/uL (130-400); RBC Distribution Width 13.8 % (11.5-14.5); Red Blood Cell (RBC) Count 4.54 mill/uL (4.20-5.40); White Blood Cell (WBC) Count 5.9 thou/uL (4.8-10.8)
[2019-06-18 12:40] LABS: PTT 27.2 SEC (22.9-36.1); Prothrombin Time 12.9 SEC (12.0-14.7)
[2019-06-18 12:54] LABS: Anion Gap 9 mmol/L (10-20); BUN (Urea Nitrogen) 15 mg/dL (9.8-20.1); Calc. Creatinine Clearance 0 mL/min (70-130); Calcium 8.7 mg/dL (7.8-10.44); Carbon Dioxide 30 mmol/L (23-31); Chloride 103 mmol/L (98-107); Estimated GFR-MDRD 34; Glucose 111 mg/dL (83-110); Potassium 4.2 mmol/L (3.5-5.1); Sodium 138 mmol/L (136-145)
== END 2019-06-18 08:02 | disposition home or self-care (01) ==
LOC: LABBT 08:01
PROVIDERS: ATTEND Urology
DX: Z01.818 Encounter for other preprocedural examination (principal); N18.9 Chronic kidney disease, unspecified; N13.30 Unspecified hydronephrosis; N39.41 Urge incontinence; C80.1 Malignant (primary) neoplasm, unspecified; R59.9 Enlarged lymph nodes, unspecified; N30.40 Irradiation cystitis without hematuria; C84.7 Anaplastic large cell lymphoma, ALK-negative; I48.91 Unspecified atrial fibrillation; E87.1 Hypo-osmolality and hyponatremia
CPT/HCPCS: 80048; 81001; 85027; 85610; 85730; 87086; 93005; 93010

== ENCOUNTER 2019-06-25 06:18 | Day surgery (SDC) | payer MEDICARE, OTHER ==
[2019-06-18 11:55] VITALS: BMI 24.0
[2019-06-25] MEDS ORDERED: Levofloxacin 500 mg/D5W 100 ml Premix Bag ONE (06:54)
[2019-06-25] MEDS ORDERED: cefTRIAXone\\ROCEPHIN 2 GM VIAL ONE (07:16)
[2019-06-25] MEDS ORDERED: Sodium Chloride 0.9% 100 ML ONE (07:17)
[2019-06-25] MEDS ORDERED: Iothalamate Meglumine 60% 50 ML VIAL FS ONE (08:21)
[2019-06-25] MEDS ORDERED: Fentanyl 100 MCG/2 ML VIAL ONE (08:21)
[2019-06-25] MEDS ORDERED: Ketamine 50 MG/ML (10ML VIAL) ONE (08:33)
--- NOTE | 2019-06-25 09:16 | RAD ---
EXAM: Retrograde IVP HISTORY: Left ureteral stent. Left hydronephrosis. COMPARISON: 03/26/2019 FINDINGS/IMPRESSION: Limited intraoperative fluoroscopic views of the retrograde IVP were submitted f or interpretation. There is moderate left hydronephrosis. There is a left ureteral stent in good position within the left renal collecting system. No obvious filling defects are seen.
[2019-06-25] MEDS ORDERED: PROPOFOL 200 MG/20 ML VIAL ONE (11:25)
[2019-06-25] MEDS ORDERED: Lidocaine 1% PF 5 ML VIAL ONE (11:25)
[2019-06-25] MEDS ORDERED: PHENYLEPHRINE-NS 100 MCG/ML 10 ML SYRINGE ONE (11:25)
--- NOTE | 2019-06-25 13:16 | OP ---
DATE OF PROCEDURE: 06/25/2019 PREOPERATIVE DIAGNOSES: 1. An 84-year-old female with history of chronic left hydronephrosis due to lymphoma. 2. History of squamous cell carcinoma of the vagina, status post radiation. 3. Urge incontinence. POSTOPERATIVE DIAGNOSES: 1. An 84-year-old female with history of chronic left hydronephrosis due to lymphoma. 2. History of squamous cell carcinoma of the vagina, status post radiation. 3. Urge incontinence. PROCEDURE PERFORMED: Cystoscopy, left retrograde, 6 x 22 double-J ureteral stent exchange. ANESTHESIA: TIVA. COMPLICATIONS: None apparent. DISPOSITION: To recovery room in stable condition. INDICATIONS FOR PROCEDURE: An 84-year-old female with history of left hydronephrosis secondary to lymphoma status post chemotherapy per Dr. Evans. She continues to have residual left retroperitoneal mass/fibrosis resulting in chronic left hydronephrosis. She presents today for interval stent exchange. Risks and complications have been discussed with her in detail including, but not limited to, bleeding, pain, infection, injury to adjacent organs and urosepsis. All questions answered to her satisfaction and she desired to proceed. DESCRIPTION OF PROCEDURE: After an informed consent was signed, the patient was taken to the operating room, broad-spectrum antibiotics were provided. A 21- Slovenian cystoscope was utilized for cystoscopy. Genital area was formally prepped and draped. Upon entering the bladder, there was cloudy debris. Her preop urine culture was negative. The bladder was irrigated. There were some areas of prominent vascularity consistent with radiation cystitis; however, no occult lesions of concern. UOs were identified in normal anatomical location. The left ureteral stent was removed, and a 0.35 Sensor wire was able to be passed through the stent into the left upper pole. A dual-lumen access sheath was passed to the level of the mid ureter and a retrograde pyelogram was performed demonstrating chronically dilated collecting system with splaying of the collecting system. A 6 x 22 double-J ureteral stent was exchanged and placed over the wire without significant issues. All wires were subsequently removed, and she tolerated the procedure well. She does have some hematuria component from cysto stent exchange as anticipated. Omnicef 300 mg one p.o. b.i.d. for 5 days, Azo p.r.n., refill for oxybutynin 10 mg XL #90 with three refills, and Colace b.i.d. She will return to clinic September 01 at 2:15 for preoperative assessment. She usually has a positive urine culture bacteria warranting treatment for test of cure prior to cystoscopy and will proceed to do the same. Anticipate 3-month interval cystoscopy exchange, the week of September 21, for 3-month interval. Job ID: [id number] MTDD
== END 2019-06-25 11:00 | disposition home or self-care (01) ==
LOC: SDC 06:18
PROVIDERS: ATTEND Urology
PROC: 0T778DZ Dilation of Left Ureter with Intraluminal Device, Via Natural or Artificial Opening Endoscopic (ICD-10-PCS; principal; 2019-06-25)
DX: N13.30 Unspecified hydronephrosis (principal); N39.41 Urge incontinence; I12.9 Hypertensive chronic kidney disease with stage 1 through stage 4 chronic kidney disease, or unspecified chronic kidney disease; N18.9 Chronic kidney disease, unspecified; E78.5 Hyperlipidemia, unspecified; Z79.899 Other long term (current) drug therapy; Z88.2 Allergy status to sulfonamides; Z88.6 Allergy status to analgesic agent; Z91.012 Allergy to eggs
CPT/HCPCS: 74420; C1758; C1769; J0696; J1956; J3010; J3490

== ENCOUNTER 2019-09-15 06:57 | Outpatient (CLI) | payer MEDICARE, OTHER ==
[2019-09-15 13:24] LABS: Hemoglobin 12.9 g/dL (12.0-16.0); Mean Corpuscular HGB CONC 32.2 g/dL (32.0-36.0); Mean Corpuscular Volume 89.9 fL (78.0-98.0); Platelet Count 366 thou/uL (130-400); RBC Distribution Width 12.3 % (11.5-14.5); Red Blood Cell (RBC) Count 4.43 mill/uL (4.20-5.40); White Blood Cell (WBC) Count 6.9 thou/uL (4.8-10.8)
[2019-09-15 13:32] LABS: INR-International Normal Ratio 0.9; PTT 25.9 SEC (22.9-36.1); Prothrombin Time 11.7 SEC (12.0-14.7)
[2019-09-15 13:52] LABS: Anion Gap 11 mmol/L (10-20); BUN (Urea Nitrogen) 14 mg/dL (9.8-20.1); Calc. Creatinine Clearance 0 mL/min (70-130); Calcium 8.6 mg/dL (7.8-10.44); Carbon Dioxide 29 mmol/L (23-31); Chloride 102 mmol/L (98-107); Estimated GFR-MDRD 25; Glucose 106 mg/dL (83-110); Potassium 4.2 mmol/L (3.5-5.1); Sodium 138 mmol/L (136-145)
== END 2019-09-15 06:58 | disposition home or self-care (01) ==
LOC: LABBT 06:57
PROVIDERS: ATTEND Urology
DX: Z01.812 Encounter for preprocedural laboratory examination (principal); N13.30 Unspecified hydronephrosis; N39.41 Urge incontinence; C80.1 Malignant (primary) neoplasm, unspecified; N18.9 Chronic kidney disease, unspecified; E87.1 Hypo-osmolality and hyponatremia; C84.7 Anaplastic large cell lymphoma, ALK-negative; R59.9 Enlarged lymph nodes, unspecified; N30.40 Irradiation cystitis without hematuria; I48.91 Unspecified atrial fibrillation
CPT/HCPCS: 80048; 81001; 85027; 85610; 85730; 87086

== ENCOUNTER 2019-09-19 09:55 | Outpatient (CLI) | payer MEDICARE, OTHER ==
[2019-09-19 18:20] LABS: SARS-CoV-2 MS2 Positive; SARS-CoV-2 N Gene Negative; SARS-CoV-2 S Gene Negative; SARS-CoV-2 orf1ab Negative
== END 2019-09-19 09:56 | disposition home or self-care (01) ==
LOC: LABBT 09:55
PROVIDERS: ATTEND Urology
DX: Z01.812 Encounter for preprocedural laboratory examination (principal); Z11.59 Encounter for screening for other viral diseases; N18.9 Chronic kidney disease, unspecified; I48.91 Unspecified atrial fibrillation; N13.30 Unspecified hydronephrosis; C80.1 Malignant (primary) neoplasm, unspecified; N30.40 Irradiation cystitis without hematuria; C84.7 Anaplastic large cell lymphoma, ALK-negative; E87.1 Hypo-osmolality and hyponatremia; R59.9 Enlarged lymph nodes, unspecified
CPT/HCPCS: 87635; U0003

== ENCOUNTER 2019-09-24 06:23 | Day surgery (SDC) | payer MEDICARE, OTHER ==
[2019-09-15 12:40] VITALS: BMI 22.8
[2019-09-24] MEDS ORDERED: Fentanyl 100 MCG/2 ML VIAL ONE (06:41)
[2019-09-24] MEDS ORDERED: Iopamidol 50 ML FS ONE (06:42)
[2019-09-24] MEDS ORDERED: Sodium Chloride 0.9% 100 ML ONE (06:52)
[2019-09-24] MEDS ORDERED: cefTRIAXone\\ROCEPHIN 2 GM VIAL ONE (06:52)
[2019-09-24] MEDS ORDERED: Cefepime 2 GM in Sodium Chloride 0.9% 100 ML IVPB SCH (07:45)
--- NOTE | 2019-09-24 08:05 | RAD ---
SINGLE VIEW OF THE ABDOMEN: Comparison: 12-25-18 History: Hydronephrosis. FINDINGS: Single view of the abdomen shows a nonspecific, nonobstructed bowel gas pattern. A left sided uretera l stent is unchanged in position. No obvious calcifications are seen along this stent. Degenerative c hanges are seen in the spine. IMPRESSION: Stable exam. POS: HILARYA
--- NOTE | 2019-09-24 09:19 | RAD ---
RETROGRADE PYELOGRAM: Two fluoroscopic images demonstrated. Indication: Intraoperative imaging during retrograde study. FINDINGS: The first image shows catheterization of the left ureter with Y cord in the left renal pelvis. Partia l opacification of the upper collecting structures. The second image shows a left ureteral stent has been placed. The upper pigtail lies within the dilat ed left upper collecting system. The distal pigtail is seen in the left pelvis and may reside within the distal left ureter. Recommend clinical correlation. POS: JANET
--- NOTE | 2019-09-24 09:21 | OP ---
DATE OF PROCEDURE: 09/24/2019 PREOPERATIVE DIAGNOSES: 1. 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 2. Retroperitoneal lymphadenopathy, chronic renal insufficiency. POSTOPERATIVE DIAGNOSES: 1. 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 2. Retroperitoneal lymphadenopathy, chronic renal insufficiency. PROCEDURES PERFORMED: Cystoscopy, left retrograde pyelogram, 6 x 22 double-J ureteral stent exchange. ANESTHESIA: LMA. COMPLICATIONS: None apparent. DISPOSITION: To recovery room in stable condition. INTRAOPERATIVE FINDINGS: 1. As previous, fibrotic change of the bladder mucosa with telangiectasia consistent with radiation cystitis. 2. Left ureteral stent mildly encrusted. 3. Chronic left hydronephrosis moiety. INDICATIONS FOR THE PROCEDURE AND HISTORY: Ms. 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 She underwent chemotherapy. She has residual left retroperitoneal mass with fibrosis resulting in chronic left hydronephrosis. She presents today for interval stent exchange. DESCRIPTION OF PROCEDURE: After an informed consent was signed, the patient was taken to the operating room, placed in a dorsal lithotomy position with the genital area prepped and draped in the usual surgical sterile fashion. A 21-Estonian cystoscope was utilized for cystoscopy, which demonstrated bladder consistent with debris. Bladder was irrigated. There was evidence of telangiectasia in the bladder mucosa, fibrosis consistent with radiation cystitis. The right UO was identified with efflux. Left UO with ureteral stent was removed to the level of the meatus. A 0.035 Sensor wire was passed through the stent; however, I could not pass it through the proximal coil due to incrustation. Therefore, the stent was completely removed and a 0.035 Sensor wire was able to be passed into the left lower pole with ease. Retrograde pyelogram with the wire in situ demonstrates chronic left hydronephrosis as previous. At this time, we placed a 6 x 22 double-J ureteral stent uneventfully. She tolerated the procedure well. She is discharged with ciprofloxacin 250 mg one p.o. b.i.d. for 3 days, Colace to continue 100 mg b.i.d., oxybutynin 10 mg one p.o. daily #90, refill prescription provided. She will return to clinic on November 23 at 0215 hours for preoperative assessment for rescheduling her interval stent exchange. Upon followup, I will recheck a creatinine, as she has elevated creatinine from her baseline. She will be due for her annual staging CT with me prior to her next cysto stent exchange. Job ID: [id number] MTDD
[2019-09-24] MEDS ORDERED: Oxybutynin 5 MG TAB ONE (09:26)
[2019-09-24] MEDS ORDERED: Phenazopyridine HCl 97.5 MG TABLET ONE (09:27)
[2019-09-24] MEDS ORDERED: Ondansetron PF 4 MG/2 ML Vial ONE (10:56)
[2019-09-24] MEDS ORDERED: Lidocaine 1% PF 5 ML VIAL ONE (10:56)
[2019-09-24] MEDS ORDERED: PROPOFOL 200 MG/20 ML VIAL ONE (10:56)
[2019-09-24] MEDS ORDERED: EPHEDRINE 25 MG/5 ML SYRINGE ONE (10:56)
== END 2019-09-24 13:20 | disposition home or self-care (01) ==
LOC: SDC 06:23
PROVIDERS: ATTEND Urology
PROC: 0T778DZ Dilation of Left Ureter with Intraluminal Device, Via Natural or Artificial Opening Endoscopic (ICD-10-PCS; principal; 2019-09-24)
DX: N13.30 Unspecified hydronephrosis (principal); R59.0 Localized enlarged lymph nodes; I10 Essential (primary) hypertension; E78.5 Hyperlipidemia, unspecified; Z79.899 Other long term (current) drug therapy; Z88.2 Allergy status to sulfonamides; Z91.012 Allergy to eggs
CPT/HCPCS: 52332; 74018; 74420; C1758; C1769; J0692; J0696; J2001; J2405; J2704; J3010; J3490; Q9967

== ENCOUNTER 2019-12-15 12:13 | Outpatient (CLI) | payer MEDICARE, OTHER ==
--- NOTE | 2019-12-15 14:20 | CT ---
ABDOMEN AND PELVIC CT SCAN WITHOUT IV CONTRAST: HISTORY: History of renal calculi, hydronephrosis. COMPARISON: 12/16/2018 CT. FINDINGS: Minimal linear and parenchymal changes in the lung bases which are little changed from prior study. Several liver cysts up to 2.9 cm in size. Several left adrenal adenomas up to approximately 2 cm niurka wing little change from prior study. Pancreas and spleen appear unremarkable. Again noted is modera te to severe left-sided renal hydronephrosis with what appears to be some mildly progressive left-alverto ed renal cortical thinning. There are several new left-sided renal calculi up to approximately 0.7 c m in the lower pole calyx and 0.6 cm in a more mid calyx. Left ureteral stent in place. No evidence for right renal calculus or acute obstruction. Again noted is a somewhat triangular-shaped fluid collection in the posterior right pelvis measuring approximately 3.4 x 5.4 cm in size slightly incre asing in size from the prior study. Lumbar spine spondylosis with anterolisthesis of L4 on L5 and as sociated severe canal stenosis. No evidence for large or small bowel obstruction. IMPRESSION: Left ureteral calculus in place. Several left-sided renal calculi with left-sided hydronephrosis. O ther findings as above showing little change from prior exam. POS: OFF
== END 2019-12-15 12:14 | disposition home or self-care (01) ==
LOC: BICCT 12:13
PROVIDERS: ATTEND Urology
DX: N13.2 Hydronephrosis with renal and ureteral calculous obstruction (principal); N18.9 Chronic kidney disease, unspecified; K76.89 Other specified diseases of liver; D35.02 Benign neoplasm of left adrenal gland; M47.816 Spondylosis without myelopathy or radiculopathy, lumbar region; M43.16 Spondylolisthesis, lumbar region; M48.061 Spinal stenosis, lumbar region without neurogenic claudication; Z96.0 Presence of urogenital implants
CPT/HCPCS: 74176; 81001; 87086

== ENCOUNTER 2019-12-18 07:15 | Outpatient (CLI) | payer MEDICARE, OTHER ==
--- NOTE | 2019-12-18 10:19 | NM ---
EXAM: NM Renogram HIPN Lasix PROVIDED CLINICAL HISTORY: Unspecified hydronephrosis COMPARISON: 11/03/2015 FINDINGS: 31 mg of Lasix was administered 15 minutes prior to imaging. There is asymmetric diminished uptake of radiotracer by the left kidney compared to the right with th e time of maximum activity on the right of 2 minutes and on the left of 25.4 minutes. Split renal function of 64.4% on the right and 35.6% on the left is obtained with previous split renal function o f 57.4% on the right and 42.6 on the left. Overall normal washout curve is seen on the right. The washout curve on the left does not demonstrate significant upsloping but is overall flattened. IMPRESSION: Diminished function of the left kidney compared to the right with split renal function of 64.4% on th e right and 35.6% on the left. Although there is no significant washout present on the left, this is likely a factor of decreased renal function as opposed to high-grade obstruction.
== END 2019-12-18 07:16 | disposition home or self-care (01) ==
LOC: NM 07:15
PROVIDERS: ATTEND Urology
DX: N18.9 Chronic kidney disease, unspecified (principal); N13.30 Unspecified hydronephrosis; N28.89 Other specified disorders of kidney and ureter
CPT/HCPCS: 78708; A4641; A9562

== ENCOUNTER 2020-02-11 11:05 | Outpatient (CLI) | payer MEDICARE, OTHER ==
--- NOTE | 2020-02-11 14:38 | CT ---
CT ABDOMEN AND PELVIS WITHOUT IV CONTRAST: 02/11/20 INDICATIONS: Hydronephrosis and renal calculi. Comparison made to CT abdomen and pelvis 12/15/19. FINDINGS: Lung bases clear. There are scattered liver hypodensities which are most consistent with hepatic cyst s. These are stable. The spleen appears unremarkable. Pancreas unremarkable. Suggestion of septation in the gallbladder is stable. Gallbladder is poorly distended and appears unc hanged in appearance. Stomach is distended and unremarkable. At least two left adrenal masses are aga in seen which are stable in appearance and exhibit low density as noted previously. The right adrenal gland appears unremarkable. Kidneys show no evidence of hydronephrosis. There is a left ureteral stent in place which appears nor soy positioned. There are several small calcifications in the lower pole collecting structures of t he left kidney. There is abnormal density and stranding and irregularity involving the left renal pelvis which is min imally distended. This may represent inflammatory change. Right collecting structure is unremarkable. Bowel loops unremarkable and unchanged in appearance. Aor ta calcified without aneurysm. Images through the pelvis again reveal a localized fluid dense collection in the right pelvis which w as previously described and appears unchanged. Urinary bladder is minimally distended and unremarkabl e in appearance. There is calcification seen in the urinary bladder just beyond the left UVJ within t he pigtail portion of the ureteral stent. Images through the pelvis again reveal dense stool within a dilated rectum which has a similar appear ance to the 12/15/19 exam which again suggests fecal impaction. I cannot exclude early mural thickening and changes of stercoral colitis may be present. IMPRESSION: 1. Left ureteral stent is in place and there are calcifications in the lower pole collecting str uctures of the left kidney. Increased density and hazy stranding surrounding the left renal pelvis an d upper left ureter is seen possibly representing inflammatory change. The left pelvis is minimally p rominent without evidence of hydronephrosis. 2. There is a calcification in the urinary bladder just beyond the left UVJ within the pigtail o f the ureteral stent in the bladder. 3. Fluid collection in the right pelvis is unchanged in appearance. 4. Dense stool in a dilated rectum suggesting fecal impaction with question early stercoral coli tis. 5. Hepatic cystic lesions appear stable. 6. The left adrenal adenomas are unchanged. POS: AGW
== END 2020-02-11 11:06 | disposition home or self-care (01) ==
LOC: BICCT 11:05
PROVIDERS: ATTEND Urology
DX: N13.2 Hydronephrosis with renal and ureteral calculous obstruction (principal); N18.9 Chronic kidney disease, unspecified; K76.89 Other specified diseases of liver; D35.02 Benign neoplasm of left adrenal gland; N28.89 Other specified disorders of kidney and ureter; N32.89 Other specified disorders of bladder; K59.39 Other megacolon; Z96.0 Presence of urogenital implants
CPT/HCPCS: 74176

== ENCOUNTER 2020-02-20 07:06 | Outpatient (CLI) | payer MEDICARE, OTHER ==
[2020-02-20 13:58] LABS: Hemoglobin 12.7 g/dL (12.0-16.0); Mean Corpuscular HGB CONC 32.7 g/dL (32.0-36.0); Mean Corpuscular Hemoglobin 29.9 pg (27.0-31.0); Mean Corpuscular Volume 91.4 fL (78.0-98.0); Mean Platelet Volume 6.2 fL (7.4-10.4); Platelet Count 380 thou/uL (130-400); RBC Distribution Width 13.6 % (11.5-14.5); Red Blood Cell (RBC) Count 4.24 mill/uL (4.20-5.40); White Blood Cell (WBC) Count 6.5 thou/uL (4.8-10.8)
[2020-02-20 14:03] LABS: INR-International Normal Ratio 0.9; PTT 28.3 sec (22.9-36.1); Prothrombin Time 12.5 sec (12.0-14.7)
[2020-02-20 14:49] LABS: Anion Gap 12 mmol/L (10-20); BUN (Urea Nitrogen) 19 mg/dL (9.8-20.1); Calc. Creatinine Clearance 0 mL/min (70-130); Calcium 9.1 mg/dL (7.8-10.44); Carbon Dioxide 27 mmol/L (23-31); Chloride 104 mmol/L (98-107); Estimated GFR-MDRD 38; Glucose 88 mg/dL (83-110); Potassium 4.4 mmol/L (3.5-5.1); Sodium 139 mmol/L (136-145)
[2020-02-21 15:21] LABS: SARS-CoV-2 MS2 Positive; SARS-CoV-2 N Gene Negative; SARS-CoV-2 S Gene Negative; SARS-CoV-2 by NAA Not Detected (NotDetected); SARS-CoV-2 orf1ab Negative
--- NOTE | 2020-02-23 17:25 | EKG ---
Test Reason : Blood Pressure : / mmHG Vent. Rate : 068 BPM Atrial Rate : 068 BPM P-R Int : 166 ms QRS Dur : 096 ms QT Int : 400 ms P-R-T Axes : -29 011 019 degrees QTc Int : 425 ms Sinus rhythm with Premature atrial complexes Otherwise normal ECG When compared with ECG of 19-DEC-2019 10:02, Premature atrial complexes are now Present Confirmed by DR. Heather CALDWELL ([id number]) on 02/23/2020 5:25:25 PM Referred By: GINO Confirmed By:DR. Heather CALDWELL
== END 2020-02-20 07:07 | disposition home or self-care (01) ==
LOC: LABBT 07:06
PROVIDERS: ATTEND Urology
DX: Z01.818 Encounter for other preprocedural examination (principal); Z20.828 Contact with and (suspected) exposure to other viral communicable diseases; N13.30 Unspecified hydronephrosis; N39.41 Urge incontinence; C80.1 Malignant (primary) neoplasm, unspecified; E87.1 Hypo-osmolality and hyponatremia; N18.9 Chronic kidney disease, unspecified; C84.7 Anaplastic large cell lymphoma, ALK-negative; R59.9 Enlarged lymph nodes, unspecified; N30.40 Irradiation cystitis without hematuria; I48.91 Unspecified atrial fibrillation; N20.0 Calculus of kidney
CPT/HCPCS: 80048; 81001; 85027; 85610; 85730; 87086; 93005; U0003; 87635; 93010

== ENCOUNTER 2020-02-25 06:07 | Day surgery (SDC) | payer MEDICARE, OTHER ==
[2020-02-23 13:54] VITALS: BMI 20.9
[2020-02-25] MEDS ORDERED: Fentanyl 100 MCG/2 ML VIAL ONE (06:36)
[2020-02-25] MEDS ORDERED: Lidocaine 2% Jelly 5 ML TUBE ONE (06:36)
[2020-02-25] MEDS ORDERED: Levofloxacin 500 mg/D5W 100 ml Premix Bag ONE (07:06)
[2020-02-25] MEDS ORDERED: cefTRIAXone\\ROCEPHIN 1 GM VIAL ONE (07:07)
[2020-02-25] MEDS ORDERED: Sodium Chloride 0.9% 0 ML ONE (07:07)
[2020-02-25] MEDS ORDERED: Iothalamate Meglumine 60% 50 ML VIAL FS ONE (07:08)
[2020-02-25] MEDS ORDERED: Sodium Chloride 0.9% 100 ML ONE (07:09)
--- NOTE | 2020-02-25 07:33 | RAD ---
KUB: 02/25/2020 COMPARISON: 12/24/2019 HISTORY: Left-sided ureteral stent. FINDINGS: There is a left double-J ureteral stent present. The bowel gas pattern appears nonobstructe d. No calcifications are appreciated along the course of the stent. Prominent lumbar spine degenerative change present. IMPRESSION: Left double-J ureteral stent present.
[2020-02-25] MEDS ORDERED: Phenazopyridine HCl 100 MG TAB ONE (08:51)
--- NOTE | 2020-02-25 08:55 | RAD ---
Retrograde ureterogram intraoperative fluoroscopy HISTORY: Ureteral obstruction. FINDINGS: Intraoperative fluoroscopy was provided for retrograde study as performed by Dr. Lilli bundy. Multiple spot fluoroscopic images are included. There is catheterization and contrast opacification of a moderately distended left renal collecting system. Final image shows double pigtail stent overlying the expected course of the left ureter, with contras t in the urinary bladder and distended left renal collecting system.
--- NOTE | 2020-02-25 10:13 | OP ---
DATE OF PROCEDURE: 02/25/2020 PRIMARY CARE PHYSICIAN: Dr. Russell Myers. PREOPERATIVE DIAGNOSES: 1. An 84-year-old female with history of left hydronephrosis secondary to lymphoma, retroperitoneal lymphadenopathy. 2. Left renal lithiasis. POSTOPERATIVE DIAGNOSES: 1. An 84-year-old female with history of left hydronephrosis secondary to lymphoma, retroperitoneal lymphadenopathy. 2. Left renal lithiasis. PROCEDURES PERFORMED: Cystoscopy, left retrograde pyelogram, 6 x 22 double-J ureteral stent exchange, flexible ureteroscopy, pyeloscopy, basket extraction of left renal calculi, laser lithotripsy of calculi, and removal of bladder calculi(complex as it required fragmentation with endoscopic grasper) ANESTHESIA: LMA. COMPLICATIONS: None apparent DISPOSITION: To recovery room in stable condition. INDICATIONS FOR PROCEDURE AND HISTORY: Ms. 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 She has decreased function of the left kidney, Lasix renal scan demonstrating left kidney function at 36% with chronic hydronephrotic moiety. She has previously undergone 3-month interval stent exchange, however, recently has transitioned to every 2 months. We previously tried to attempt leaving her without an indwelling ureteral stent, and she subsequently developed sepsis and desired to restart her ureteral stent exchange interval. Recently, a staging CT demonstrated left renal calculi, which was laser lithotripsy in the lower moiety. Followup CAT scan demonstrates residual stone nidus and presents today for stent exchange, ureteroscopy. Risks and complications of the procedure have been discussed with her in detail including, but not limited to, bleeding, pain, infection, injury to adjacent organs, urosepsis, ureteral renal kidney injury. DESCRIPTION OF PROCEDURE: After an informed consent was signed, the patient was taken to the operating room, placed in a dorsal lithotomy position with the genital area prepped and draped in the usual surgical sterile fashion. A 21-Japanese cystoscope was utilized for cystoscopy, which demonstrated normal bladder mucosa. She usually has significant debris within the bladder, however, today, her urine is relatively clear. Got bilateral UOs in normal orthotopic position. There is a stone in the bladder, in the morphology consistent with incrustation of the pigtail, which is free-floating within the bladder lumen. This was extracted with an endoscopic grasper. It was moderate in size in which the CAT scan demonstrated this was about 6 mm. It appeared to be larger about 8 to 10 mm. With graspers, we were able to fragment it into several debris. This was extracted successfully. The previously placed ureteral stent which was just placed on December 23, demonstrates incrustation of the distal pigtail and this was removed to the level of the meatus. I was able to pass a 0.035 Sensor wires into the left upper pole through the stent and the stent completely removed. A 10-Japanese dual-lumen access sheath was passed to the proximal ureter, and a 0.035 Super Stiff wire was placed into the left upper pole. At this time, we transitioned to a 12 x 14-Japanese navigator. There was mild resistance at the mid ureter; however, we gently were able to pass this to the level of the renal proximal ureter with ease. At this time, the flexible ureteroscope was advanced over the wire and sheath, and the wire completely removed with safety wire intact. Surveillance pyeloscopy demonstrated mild debris within the bladder which was significantly improved from prior ureteroscopy. We surveyed the collecting system demonstrated no lesion, there were stone debris in the left mid posterior pole consistent with the CAT scan. Some of the larger stone debris was basket extracted atraumatically through the navigator, and the residual stones were small in caliber about 2 to 3 mm, and these were laser lithotripsied into tiny dustlike stones. What remained in the collecting system is too small to basket or laser. Surveying of the collecting system demonstrated no obvious big stones concerning. Surveying of the ureter distally demonstrated that she does have some fibrotic changes of the mid to distal ureter. No obvious stone nidus was seen. There was some soft debris within the mid to distal ureter, not consistent with urolithiasis. At this time, a 6 x 22 double-J ureteral stent was passed without difficulty with proximal coil in the upper pole with adequate redundancy in the bladder. She tolerated the procedure well and transported to the recovery room in stable condition. She will follow up with me on March 25 for preop/postop appointment. Discharged with Omnicef x5 days, refill for VESIcare, Colace provided. I planned to discuss with her regarding her further disposition regarding the patient and family to consider options of stent pull and observation. Again, given her accelerated incrustation which will most likely require ureteral stent exchange every 2-month interval with staging CT as indicated, as KUB today demonstrates the stones are difficult to visualize due to a bowel gas pattern. SPECIMEN: Stone analysis. Job ID: [id number] MTDD
[2020-02-25] MEDS ORDERED: PHENYLEPHRINE-NS 100 MCG/ML 10 ML SYRINGE ONE (10:44)
[2020-02-25] MEDS ORDERED: EPHEDRINE 25 MG/5 ML SYRINGE ONE (10:44)
[2020-02-25] MEDS ORDERED: Dexamethasone 20 MG/5 ML VIAL ONE (10:44)
[2020-02-25] MEDS ORDERED: Ondansetron PF 4 MG/2 ML Vial ONE (10:44)
[2020-02-25] MEDS ORDERED: Lidocaine 1% PF 5 ML VIAL ONE (10:44)
[2020-02-25] MEDS ORDERED: PROPOFOL 200 MG/20 ML VIAL ONE (10:44)
== END 2020-02-25 10:05 | disposition home or self-care (01) ==
LOC: SDC 06:07
PROVIDERS: ATTEND Urology
PROC: 0TC48ZZ Extirpation of Matter from Left Kidney Pelvis, Via Natural or Artificial Opening Endoscopic (ICD-10-PCS; principal; 2020-02-25)
PROC: 0T778DZ Dilation of Left Ureter with Intraluminal Device, Via Natural or Artificial Opening Endoscopic (ICD-10-PCS; 2020-02-25)
PROC: 0TCB8ZZ Extirpation of Matter from Bladder, Via Natural or Artificial Opening Endoscopic (ICD-10-PCS; 2020-02-25)
DX: C84.7 Anaplastic large cell lymphoma, ALK-negative (principal); N13.2 Hydronephrosis with renal and ureteral calculous obstruction; N21.0 Calculus in bladder; I12.9 Hypertensive chronic kidney disease with stage 1 through stage 4 chronic kidney disease, or unspecified chronic kidney disease; N18.9 Chronic kidney disease, unspecified; E78.5 Hyperlipidemia, unspecified; I69.344 Monoplegia of lower limb following cerebral infarction affecting left non-dominant side; I48.91 Unspecified atrial fibrillation; N39.41 Urge incontinence; Z79.899 Other long term (current) drug therapy; Z88.2 Allergy status to sulfonamides; Z88.6 Allergy status to analgesic agent; Z91.012 Allergy to eggs
CPT/HCPCS: 74018; 74420; 82365; 88300; J0696; J1100; J1956; J2405; J2704; J3010; J3490

== ENCOUNTER 2020-04-05 09:10 | Outpatient (CLI) | payer MEDICARE, OTHER ==
--- NOTE | 2020-04-05 10:26 | CT ---
CT ABDOMEN AND PELVIS WITHOUT CONTRAST: DATE: 04/05/2020. PROVIDED CLINICAL HISTORY: Hydronephrosis, calculus of kidney. FINDINGS: Comparison is made with the study dated 02/11/2020. The visualized lung bases are free of significant opacity. Hepatic cysts and multiple left adrenal adenomas are redemonstrated. The spleen, pancreas, right kid gabriela, and right adrenal gland appear unremarkable. There is now moderate left renal pelvocaliectasis. Inferior pole left renal calculi are demonstrated , which appear less numerous/smaller than on the prior study. Left ureteral stent remains in similar position. There is no evidence for ureteral or bladder calculus. There is no bowel dilatation, free fluid, or lymph node enlargement apparent. There is mild peristen t stranding about the left kidney and left renal pelvis/proximal ureter. Atherosclerotic vascular calcifications are seen. The osseous structures demonstrate no concerning or blastic lesions. IMPRESSION: 1. Nonvisualization of previously described bladder calculus. 2. Left nephrolithiasis, appearing less numerous/smaller than on prior. 3. Development of moderate left renal pelvocaliectasis with persistent stranding about the left yusuf l pelvis and proximal left ureter. POS: MILENA
== END 2020-04-05 09:11 | disposition home or self-care (01) ==
LOC: CT 09:10
PROVIDERS: ATTEND Urology
DX: N20.0 Calculus of kidney (principal); N13.30 Unspecified hydronephrosis
CPT/HCPCS: 74176; 81001; 87086

== ENCOUNTER 2020-04-23 06:44 | Outpatient (CLI) | payer MEDICARE, OTHER ==
[2020-04-23 14:39] LABS: Hemoglobin 11.9 g/dL (12.0-16.0); Mean Corpuscular HGB CONC 31.9 G/DL (32.0-36.0); Mean Corpuscular Hemoglobin 29.5 PG (27.0-33.0); Mean Corpuscular Volume 92.3 fl (80.0-100.0); Mean Platelet Volume 9.2 fl (7.4-10.4); Platelet Count 313 10x3/uL (130-400); RBC Distribution Width 14.7 % (11.5-14.5); Red Blood Cell (RBC) Count 4.04 10x6/uL (3.90-5.20); White Blood Cell (WBC) Count 6.2 10x3/uL (4.5-11.0)
[2020-04-23 15:00] LABS: Anion Gap 14 mmol/L (10-20); BUN (Urea Nitrogen) 17 mg/dL (9.8-20.1); Calc. Creatinine Clearance 0 mL/min (70-130); Calcium 8.7 mg/dL (7.8-10.44); Carbon Dioxide 27 mmol/L (23-31); Chloride 103 mmol/L (98-107); Glucose 94 mg/dL (83-110); PTT 27.3 sec (22.0-33.0); Prothrombin Time 10.6 sec (9.5-12.1); Sodium 140 mmol/L (136-145)
[2020-04-23 23:04] LABS: SARS-CoV-2 MS2 Positive; SARS-CoV-2 N Gene Negative; SARS-CoV-2 S Gene Negative; SARS-CoV-2 by NAA Not Detected (NotDetected); SARS-CoV-2 orf1ab Negative
== END 2020-04-23 06:45 | disposition home or self-care (01) ==
LOC: LABBT 06:44
PROVIDERS: ATTEND Urology
DX: Z01.818 Encounter for other preprocedural examination (principal); Z20.828 Contact with and (suspected) exposure to other viral communicable diseases; C84.7 Anaplastic large cell lymphoma, ALK-negative; C80.1 Malignant (primary) neoplasm, unspecified; N13.30 Unspecified hydronephrosis; N18.9 Chronic kidney disease, unspecified; N39.41 Urge incontinence; E87.1 Hypo-osmolality and hyponatremia; R59.9 Enlarged lymph nodes, unspecified; N30.40 Irradiation cystitis without hematuria; N20.0 Calculus of kidney; I48.91 Unspecified atrial fibrillation
CPT/HCPCS: 80048; 85027; 85610; 85730; U0003; 87635; 93005; 93010

== ENCOUNTER 2020-04-28 05:58 | Day surgery (SDC) | payer MEDICARE, OTHER ==
[2020-04-27 14:21] VITALS: BMI 17.6
[2020-04-28] MEDS ORDERED: cefTRIAXone\\ROCEPHIN 2 GM VIAL ONE (07:06)
[2020-04-28] MEDS ORDERED: Sodium Chloride 0.9% 100 ML ONE (07:06)
[2020-04-28] MEDS ORDERED: Fentanyl 100 MCG/2 ML VIAL ONE (07:15)
[2020-04-28] MEDS ORDERED: Iothalamate Meglumine 60% 50 ML VIAL FS ONE (07:17)
--- NOTE | 2020-04-28 08:28 | RAD ---
EXAM: XR IVP Retrograde PROVIDED CLINICAL HISTORY: Left ureteral stent, stone manipulation. COMPARISON: 02/25/2020 FINDINGS/IMPRESSION: Initial image again demonstrates the left ureteral stent in place. Subsequent images demonstrate mick ussy of the ureteral stent with placement of a guiding catheter and guidewires with contrast present in of portions of the left renal collecting system. Final image demonstrates replacement of the left ureteral stent. Correlation with intraoperative findings is recommended.
[2020-04-28] MEDS ORDERED: Phenazopyridine HCl 100 MG TAB ONE ×2 (08:36→08:38)
[2020-04-28] MEDS ORDERED: Oxybutynin 5 MG TAB ONE (08:38)
--- NOTE | 2020-04-28 09:55 | OP ---
DATE OF PROCEDURE: 04/28/2020 PREOPERATIVE DIAGNOSES: 1. An 84-year-old female with history of B-cell lymphoma with chronic left hydronephrosis. 2. Diminished function of the left kidney on Lasix renal scan at 36%. 3. Left renal lithiasis. 4. History of squamous cell carcinoma, status post pelvic radiation. POSTOPERATIVE DIAGNOSES: 1. An 84-year-old female with history of B-cell lymphoma with chronic left hydronephrosis. 2. Diminished function of the left kidney on Lasix renal scan at 36%. 3. Left renal lithiasis. 4. History of squamous cell carcinoma, status post pelvic radiation. PROCEDURES PERFORMED: Cystoscopy, left retrograde, 6 x 22 double-J ureteral stent exchange, flexible ureteroscopy, pyeloscopy, basket extraction of stone debris, laser lithotripsy of renal calculi, and stent exchange. ANESTHESIA: LMA. COMPLICATIONS: None apparent. INTRAOPERATIVE FINDINGS: 1. 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 2. Left mid to distal ureter demonstrating mucosal fibrotic changes. 3. Left lower pole punctate stone debris with sedimentous debris in the collecting system. INDICATIONS FOR THE PROCEDURE AND HISTORY: Ms. 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 She has a decreased function of the left kidney on Lasix renal scan demonstrating function at 36%, with chronic hydronephrotic moiety. She had previously undergone 3-month interval stent exchange; however, has been recently transitioned to every 2 months due to incrustation and development of left renal calculi. We previously tried to monitor her without a stent; however, she developed sepsis, given her advanced age, we did discuss conservative observation with stent pull, the patient and family agreed, however she developed sepsis. They desired to continue the ureteral stent exchange interval. They have been fully informed regarding my concerns regarding frequent surgeries and advanced age. Risks and complications including morbidity; mortality; sepsis; ureteral, renal, or kidney injury has been discussed with patient at length. The patient and family in lengthy detail. DESCRIPTION OF PROCEDURE: After an informed consent was signed, the patient was taken to the operating room, placed in a dorsal lithotomy position with the genital area prepped and draped in the usual surgical sterile fashion. A 22-Kenyan cystoscope was utilized for cystoscopy, which again demonstrated sedimentous debris, which required irrigation and evacuation. Subsequent cystoscopy demonstrated bladder mucosa without evidence of lesion, tumor of concern. There were some fibrotic changes of the bladder mucosa consistent with radiation cystitis. At this time, the previously placed ureteral stent was removed to the level of the meatus. It does demonstrate incrustation of the distal tail. A 0.035 Sensor wire was able to be passed through the stent with some resistance at the proximal coil. This was passed to the level of the upper pole. The stent was completely removed, and a 10-Kenyan dual-lumen access sheath was able to be passed into the proximal ureter with ease, and a second safety wire was placed into the left mid to upper pole. At this time, a 12 x 14-Kenyan navigator was passed. There was some resistance as previous at the level of the mid ureter at the mid SI joint level; however, with gentle manipulation, we were able to pass this level of the proximal ureter with ease. Upon placing the ureteral access, we did obtain some sedimentous debris from the collecting system. A flexible ureteroscope was then advanced over the sheath into the level of the renal pelvis. Surveying of the collecting system again demonstrated chronic hydronephrotic moiety, sedimentous debris due to chronic hydronephrosis. The wire was confirmed to be in the left upper pole, and we did identify left lower pole stone nidus that was seen on CT scan that are sedimentous. On pyeloscopy, there were multiple fragmented debris, there is a small punctate in nature. I did laser lithotripsy some of these into more small in caliber dustlike debris. We basket extracted those that were amendable. We will remain in situ or dustlike stone debris too small to basket extract and again, this was minimal in number. Survey of the ureter demonstrated no stone nidus. As previous at the level of the mid ureter, she does have some fibrotic mucosal edema and fibrotic changes of the ureteral mucosa. At this time, a 6 x 22 double-J ureteral stent was passed without difficulty into the left upper pole. She tolerated the procedure well and transported to the recovery room in stable condition. She was sent home with cefdinir for 7 days, refill on oxybutynin. She will follow up with me on for postop preop visit. will continue our routine 2-month interval of cysto stent exchange, as there is puncate stone burden on today's pyeloscopy. I will most likely obtain staging CT in a few months, to evaluate if she needs further ureteroscopy to clear her stone debris. Job ID: [id number] MTDD
--- NOTE | 2020-04-28 09:59 | RAD ---
SUPINE ABDOMEN: INDICATION: Preop. FINDINGS: Comparison 02/25/2020. A double-pigtail left ureteral stent is noted. No calcification is seen along the course of the sten t. The bowel gas pattern is unremarkable. Degenerative spine changes are again noted. The small calcifications seen in the inferior pole of the left kidney on recent CT are apparent by pl ain film. POS: AGW
[2020-04-28] MEDS ORDERED: PROPOFOL 200 MG/20 ML VIAL ONE (10:07)
[2020-04-28] MEDS ORDERED: Ondansetron PF 4 MG/2 ML Vial ONE (10:07)
[2020-04-28] MEDS ORDERED: ePHEDrine 50 MG/ML VIAL ONE (10:07)
[2020-04-28] MEDS ORDERED: Lidocaine 1% PF 5 ML VIAL ONE (10:07)
[2020-04-28] MEDS ORDERED: Dexamethasone 20 MG/5 ML VIAL ONE (10:07)
== END 2020-04-28 09:45 | disposition home or self-care (01) ==
LOC: SDC 05:58
PROVIDERS: ATTEND Urology
PROC: 0TC48ZZ Extirpation of Matter from Left Kidney Pelvis, Via Natural or Artificial Opening Endoscopic (ICD-10-PCS; principal; 2020-04-28)
PROC: 0T778DZ Dilation of Left Ureter with Intraluminal Device, Via Natural or Artificial Opening Endoscopic (ICD-10-PCS; 2020-04-28)
DX: N13.2 Hydronephrosis with renal and ureteral calculous obstruction (principal); I10 Essential (primary) hypertension; E78.5 Hyperlipidemia, unspecified; Z86.73 Personal history of transient ischemic attack (TIA), and cerebral infarction without residual deficits; Z88.2 Allergy status to sulfonamides
CPT/HCPCS: 74018; 74420; J0696; J1100; J2405; J2704; J3010; J3490

== ENCOUNTER 2020-07-14 06:06 | Day surgery (SDC) | payer MEDICARE, OTHER ==
[2020-07-13 09:38] VITALS: BMI 20.9
[2020-07-14] MEDS ORDERED: Sodium Chloride 0.9% 100 ML ONE (06:28)
[2020-07-14] MEDS ORDERED: cefTRIAXone\\ROCEPHIN 2 GM VIAL ONE (06:28)
[2020-07-14] MEDS ORDERED: Iothalamate Meglumine 60% 50 ML VIAL FS ONE (06:31)
[2020-07-14] MEDS ORDERED: Fentanyl 100 MCG/2 ML VIAL ONE (07:18)
--- NOTE | 2020-07-14 07:55 | RAD ---
KUB INDICATION: Preop evaluation COMPARISON: Prior retrograde IVP dated April 28, 2028 and KUB dated April 28, 2020. Comparisons are also made with a prior CT of the abdomen and pelvis without contrast dated April 05, 2020. FINDINGS: Bowel gas: Nonspecific but without overt appearance of obstruction. Lung bases: Right lung bases clear. Left lung base is excluded. Additional findings: There is a left double-J ureteral stent projecting in the expected position. No suspicious calcifications are evident along the course of the left ureteral stent nor overlying the left renal shadow. Osseous structures: There is dextroscoliosis of the lumbar spine with moderate to severe multilevel d isc degenerative disease. There is moderate degenerative change of the SI joints and both hips. No acute osseous abnormality is evident. IMPRESSION: 1. Stable left double-J ureteral stent.
--- NOTE | 2020-07-14 08:34 | RAD ---
EXAM: Retrograde IVP HISTORY: Left-sided ureteral stent COMPARISON: 04/28/2020 FINDINGS/IMPRESSION: Limited intraoperative fluoroscopic views of the retrograde IVP were submitted f or interpretation. There is a left-sided ureteral stent. Wires and a lithotripsy device are placed during the procedure. Eventually, a second ureteral stent is placed which appears in good position.
[2020-07-14] MEDS ORDERED: Phenazopyridine HCl 100 MG TAB ONE (08:52)
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
[2020-07-14] MEDS ORDERED: ePHEDrine 50 MG/ML VIAL ONE (09:28)
[2020-07-14] MEDS ORDERED: Dexamethasone 20 MG/5 ML VIAL ONE (09:28)
[2020-07-14] MEDS ORDERED: PHENYLEPHRINE-NS 100 MCG/ML 10 ML SYRINGE ONE (09:28)
[2020-07-14] MEDS ORDERED: Glycopyrrolate 0.2 MG/ML 5 ML SYRINGE ONE (09:28)
[2020-07-14] MEDS ORDERED: Ondansetron PF 4 MG/2 ML Vial ONE (09:28)
[2020-07-14] MEDS ORDERED: Lidocaine 1% PF 5 ML VIAL ONE (09:28)
[2020-07-14] MEDS ORDERED: PROPOFOL 200 MG/20 ML VIAL ONE (09:28)
== END 2020-07-14 10:10 | disposition home or self-care (01) ==
LOC: SDC 06:06
PROVIDERS: ATTEND Urology
PROC: 0T778DZ Dilation of Left Ureter with Intraluminal Device, Via Natural or Artificial Opening Endoscopic (ICD-10-PCS; principal; 2020-07-14)
PROC: 0TP98DZ Removal of Intraluminal Device from Ureter, Via Natural or Artificial Opening Endoscopic (ICD-10-PCS; 2020-07-14)
DX: N13.30 Unspecified hydronephrosis (principal); N30.40 Irradiation cystitis without hematuria; N39.41 Urge incontinence; I12.9 Hypertensive chronic kidney disease with stage 1 through stage 4 chronic kidney disease, or unspecified chronic kidney disease; N18.9 Chronic kidney disease, unspecified; E87.1 Hypo-osmolality and hyponatremia; I48.91 Unspecified atrial fibrillation; E78.5 Hyperlipidemia, unspecified; Z85.72 Personal history of non-Hodgkin lymphomas; Z86.73 Personal history of transient ischemic attack (TIA), and cerebral infarction without residual deficits; Z79.899 Other long term (current) drug therapy; Z88.2 Allergy status to sulfonamides; Z88.6 Allergy status to analgesic agent; Z91.012 Allergy to eggs
CPT/HCPCS: 74018; 74420; J0696; J1100; J2405; J2704; J3010; J3490

== ENCOUNTER 2020-09-09 11:53 | Outpatient (CLI) | payer MEDICARE, OTHER ==
[2020-06-25 14:27] LABS: Mean Corpuscular HGB CONC 31.5 g/dL (32.0-36.0); Mean Corpuscular Hemoglobin 29.3 pg (27.0-33.0); Mean Corpuscular Volume 93.2 fl (81.6-98.3); Platelet Count 351 10x3/uL (150-450); RBC Distribution Width 13.7 % (11.5-14.5); Red Blood Cell (RBC) Count 4.43 10x6/uL (3.90-5.03); White Blood Cell (WBC) Count 9.4 10x3/uL (3.5-10.5)
[2020-06-25 14:43] LABS: Anion Gap 15 mmol/L (10-20); BUN (Urea Nitrogen) 14 mg/dL (9.8-20.1); Calc. Creatinine Clearance 0 mL/min (70-130); Calcium 8.8 mg/dL (7.8-10.44); Carbon Dioxide 23 mmol/L (23-31); Chloride 105 mmol/L (98-107); Glucose 89 mg/dL (83-110); PTT 24.9 sec (22.0-33.0); Potassium 4.4 mmol/L (3.5-5.1); Prothrombin Time 10.5 sec (9.5-12.1); Sodium 139 mmol/L (136-145)
[2020-06-26 02:07] LABS: SARS-CoV-2 PCR by NAA Not Detected (NotDetected)
[2020-07-10 02:31] LABS: SARS-CoV-2 PCR by NAA Not Detected (NotDetected)
[2020-09-09 15:31] LABS: PTT 28.5 sec (22.0-33.0)
[2020-09-09 15:40] LABS: Hemoglobin 10.9 g/dL (12.0-15.5); Mean Corpuscular HGB CONC 31.2 g/dL (32.0-36.0); Mean Corpuscular Hemoglobin 27.9 pg (27.0-33.0); Mean Corpuscular Volume 89.5 fl (81.6-98.3); Mean Platelet Volume 8.7 fl (7.4-10.4); Platelet Count 444 10x3/uL (150-450); RBC Distribution Width 13.6 % (11.5-14.5); White Blood Cell (WBC) Count 6.1 10x3/uL (3.5-10.5)
[2020-09-09 16:04] LABS: Anion Gap 15 mmol/L (10-20); BUN (Urea Nitrogen) 21 mg/dL (9.8-20.1); Calc. Creatinine Clearance 0 mL/min (70-130); Calcium 8.7 mg/dL (7.8-10.44); Carbon Dioxide 24 mmol/L (23-31); Chloride 107 mmol/L (98-107); Glucose 75 mg/dL (83-110); Potassium 4.4 mmol/L (3.5-5.1); Sodium 142 mmol/L (136-145)
[2020-09-10 01:48] LABS: SARS-CoV-2 PCR by NAA Not Detected (NotDetected)
== END 2020-09-09 11:54 | disposition home or self-care (01) ==
LOC: LABBT 11:53
PROVIDERS: ATTEND Urology
DX: Z01.818 Encounter for other preprocedural examination (principal); Z20.822 Contact with and (suspected) exposure to COVID-19; N13.30 Unspecified hydronephrosis; N39.41 Urge incontinence; C80.1 Malignant (primary) neoplasm, unspecified; N18.9 Chronic kidney disease, unspecified; E87.1 Hypo-osmolality and hyponatremia; C84.7 Anaplastic large cell lymphoma, ALK-negative; R59.9 Enlarged lymph nodes, unspecified; N30.40 Irradiation cystitis without hematuria; I48.91 Unspecified atrial fibrillation; N20.0 Calculus of kidney
CPT/HCPCS: 80048; 81001; 85027; 85610; 85730; 87086; U0003 ×2; U0005 ×2; 87635; 93005; 93010

== ENCOUNTER 2020-09-13 06:44 | Day surgery (SDC) | payer MEDICARE, OTHER ==
[2020-09-10 13:46] VITALS: BMI 19.1
[2020-09-13] MEDS ORDERED: cefTRIAXone\\ROCEPHIN 1 GM VIAL ONE (08:09)
[2020-09-13] MEDS ORDERED: Sodium Chloride 0.9% 100 ML ONE (08:09)
[2020-09-13] MEDS ORDERED: Iothalamate Meglumine 60% 50 ML VIAL FS ONE (10:22)
[2020-09-13] MEDS ORDERED: SUGAMMADEX SODIUM 200 MG/2 ML VIAL ONE (10:29)
[2020-09-13] MEDS ORDERED: Famotidine/PF 20 mg/2ml Vial ONE (10:29)
[2020-09-13] MEDS ORDERED: Fentanyl 100 MCG/2 ML VIAL ONE (10:29)
[2020-09-13] MEDS ORDERED: Ondansetron PF 4 MG/2 ML Vial ONE (10:51)
[2020-09-13] MEDS ORDERED: Lidocaine 1% PF 5 ML VIAL ONE (10:51)
[2020-09-13] MEDS ORDERED: PROPOFOL 200 MG/20 ML VIAL ONE (10:51)
[2020-09-13] MEDS ORDERED: Rocuronium Bromide 10 MG/ML (10ML VIAL) ONE (10:51)
[2020-09-13] MEDS ORDERED: Phenazopyridine HCl 100 MG TAB ONE (12:12)
== END 2020-09-13 15:17 | disposition home or self-care (01) ==
LOC: SDC 06:44
PROVIDERS: ATTEND Urology
PROC: 0TC48ZZ Extirpation of Matter from Left Kidney Pelvis, Via Natural or Artificial Opening Endoscopic (ICD-10-PCS; principal; 2020-09-13)
PROC: 0T778DZ Dilation of Left Ureter with Intraluminal Device, Via Natural or Artificial Opening Endoscopic (ICD-10-PCS; 2020-09-13)
DX: C84.7 Anaplastic large cell lymphoma, ALK-negative (principal); N13.2 Hydronephrosis with renal and ureteral calculous obstruction; E78.5 Hyperlipidemia, unspecified; M85.80 Other specified disorders of bone density and structure, unspecified site; M47.816 Spondylosis without myelopathy or radiculopathy, lumbar region; M41.86 Other forms of scoliosis, lumbar region; I12.9 Hypertensive chronic kidney disease with stage 1 through stage 4 chronic kidney disease, or unspecified chronic kidney disease; N18.9 Chronic kidney disease, unspecified; I48.91 Unspecified atrial fibrillation; Z86.73 Personal history of transient ischemic attack (TIA), and cerebral infarction without residual deficits; Z79.899 Other long term (current) drug therapy; Z88.2 Allergy status to sulfonamides; Z88.6 Allergy status to analgesic agent; Z91.012 Allergy to eggs
CPT/HCPCS: 52356; 74018; 74420; Q9961; J0696; J2405; J2704; J3010; J3490; S0028

== ENCOUNTER 2020-11-24 07:31 | Day surgery (SDC) | payer MEDICARE, OTHER ==
[2020-11-23 11:36] VITALS: BMI 21.4
[2020-11-24] MEDS ORDERED: Sodium Chloride 0.9% 100 ML ONE (08:10)
[2020-11-24] MEDS ORDERED: cefTRIAXone\\ROCEPHIN 2 GM VIAL ONE (08:10)
[2020-11-24] MEDS ORDERED: Fentanyl 100 MCG/2 ML VIAL ONE (09:52)
[2020-11-24] MEDS ORDERED: Lidocaine 1% PF 5 ML VIAL ONE (09:58)
[2020-11-24] MEDS ORDERED: PROPOFOL 200 MG/20 ML VIAL ONE (09:58)
[2020-11-24] MEDS ORDERED: Phenazopyridine HCl 100 MG TAB ONE (11:08)
== END 2020-11-24 12:52 | disposition home or self-care (01) ==
LOC: SDC 07:31
PROVIDERS: ATTEND Urology
PROC: 0T778DZ Dilation of Left Ureter with Intraluminal Device, Via Natural or Artificial Opening Endoscopic (ICD-10-PCS; principal; 2020-11-24)
PROC: 0TP98DZ Removal of Intraluminal Device from Ureter, Via Natural or Artificial Opening Endoscopic (ICD-10-PCS; 2020-11-24)
DX: N13.1 Hydronephrosis with ureteral stricture, not elsewhere classified (principal); N13.2 Hydronephrosis with renal and ureteral calculous obstruction; N39.41 Urge incontinence; C84.7 Anaplastic large cell lymphoma, ALK-negative; N30.40 Irradiation cystitis without hematuria; E78.5 Hyperlipidemia, unspecified; I48.91 Unspecified atrial fibrillation; I12.9 Hypertensive chronic kidney disease with stage 1 through stage 4 chronic kidney disease, or unspecified chronic kidney disease; N18.9 Chronic kidney disease, unspecified; Z85.44 Personal history of malignant neoplasm of other female genital organs; Z86.73 Personal history of transient ischemic attack (TIA), and cerebral infarction without residual deficits; Z79.899 Other long term (current) drug therapy; Z88.2 Allergy status to sulfonamides; Z88.6 Allergy status to analgesic agent; Z91.012 Allergy to eggs
CPT/HCPCS: 74420; C2617; J0696; J2704; J3010; J3490

== ENCOUNTER 2021-01-19 06:04 | Day surgery (SDC) | payer MEDICARE, OTHER ==
[2021-01-18 09:40] VITALS: BMI 18.6
[2021-01-19] MEDS ORDERED: Famotidine/PF 20 mg/2ml Vial ONE (06:33)
[2021-01-19] MEDS ORDERED: Fentanyl 100 MCG/2 ML VIAL ONE (06:33)
[2021-01-19] MEDS ORDERED: Sodium Chloride 0.9% 100 ML ONE (06:51)
[2021-01-19] MEDS ORDERED: cefTRIAXone\\ROCEPHIN 2 GM VIAL ONE (06:51)
[2021-01-19] MEDS ORDERED: Iothalamate Meglumine 60% 30 ML VIAL FS ONE (07:18)
[2021-01-19] MEDS ORDERED: Lidocaine 1% PF 5 ML VIAL ONE (07:33)
[2021-01-19] MEDS ORDERED: PROPOFOL 200 MG/20 ML VIAL ONE (07:33)
[2021-01-19] MEDS ORDERED: Ondansetron PF 4 MG/2 ML Vial ONE (07:33)
[2021-01-19] MEDS ORDERED: Metoclopramide HCl 10 MG/2 ML VIAL ONE (07:33)
[2021-01-19] MEDS ORDERED: ePHEDrine 50 MG/ML VIAL ONE (07:33)
[2021-01-19] MEDS ORDERED: Phenazopyridine HCl 100 MG TAB ONE (08:32)
[2021-01-19] MEDS ORDERED: Metoprolol Tartrate 5 MG/5 ML VIAL ONE (10:43)
== END 2021-01-19 13:10 | disposition home or self-care (01) ==
LOC: SDC 06:04
PROVIDERS: ATTEND Urology
PROC: 0T778DZ Dilation of Left Ureter with Intraluminal Device, Via Natural or Artificial Opening Endoscopic (ICD-10-PCS; principal; 2021-01-19)
PROC: 0TP98DZ Removal of Intraluminal Device from Ureter, Via Natural or Artificial Opening Endoscopic (ICD-10-PCS; 2021-01-19)
DX: N13.1 Hydronephrosis with ureteral stricture, not elsewhere classified (principal); N30.40 Irradiation cystitis without hematuria; I48.91 Unspecified atrial fibrillation; E78.5 Hyperlipidemia, unspecified; I12.9 Hypertensive chronic kidney disease with stage 1 through stage 4 chronic kidney disease, or unspecified chronic kidney disease; N18.9 Chronic kidney disease, unspecified; E87.1 Hypo-osmolality and hyponatremia; I69.344 Monoplegia of lower limb following cerebral infarction affecting left non-dominant side; N39.41 Urge incontinence; Z85.72 Personal history of non-Hodgkin lymphomas; Z79.899 Other long term (current) drug therapy; Z88.2 Allergy status to sulfonamides; Z88.6 Allergy status to analgesic agent; Z91.012 Allergy to eggs
CPT/HCPCS: 74018; 74420; 93005; 93010; C2617; J0696; J2405; J2704; J2765; J3010; J3490; S0028

== ENCOUNTER 2021-01-27 12:40 | Inpatient (IN) | payer MEDICARE, OTHER ==
[2021-01-27 13:24] LABS: Bilirubin Negative (Negative); Blood, Urine Trace (Negative); Clarity Turbid (Clear); Glucose, Urine (Dipstick) Normal (Negative); Ketone, Urine Negative (Negative); Leukocyte 500 Leu/uL (Negative); Nitrite Negative (Negative); Protein, Urine (Dipstick) 10 mg/dL (Neg-Trace); Specific Gravity, Urine 1.011 (1.002-1.036); Urobilinogen Normal mg/dL (Less than 2)
[2021-01-27 13:25] LABS: Bacteria/HPF 3+ HPF (None Seen); Squamous Epithelial 0-3 HPF (0-3)
[2021-01-27 13:30] LABS: #Lymphocytes 0.9 thou/uL (1.20-3.40); #Monocytes 0.5 thou/uL (0.11-0.59); #Neutrophils 11.9 thou/uL (1.40-6.50); %Basophils 0.2 % (0.0-1.0); %Eosinophils 0.1 % (0.0-10.0); %Lymphocytes 6.9 % (21.0-51.0); %Monocytes 3.4 % (0.0-10.0); %Neutrophils 89.4 % (42.0-75.0); Hemoglobin 11.4 g/dL (12.0-16.0); Mean Corpuscular HGB CONC 31.9 g/dL (32.0-36.0); Mean Corpuscular Hemoglobin 28.1 pg (27.0-31.0); Mean Corpuscular Volume 88.1 fL (78.0-98.0); Mean Platelet Volume 6.3 fL (7.4-10.4); Platelet Count 272 thou/uL (130-400); RBC Distribution Width 12.2 % (11.5-14.5); Red Blood Cell (RBC) Count 4.06 mill/uL (4.20-5.40); White Blood Cell (WBC) Count 13.3 thou/uL (4.8-10.8)
[2021-01-27 13:52] LABS: ALT (SGPT) 15 U/L (8-55); AST (SGOT) 18 U/L (5-34); Albumin 2.6 g/dL (3.4-4.8); Alkaline Phosphatase 70 U/L (40-110); Anion Gap 12 mmol/L (10-20); BUN (Urea Nitrogen) 19 mg/dL (9.8-20.1); Bilirubin, Total 0.6 mg/dL (0.2-1.2); Calc. Creatinine Clearance 0 mL/min (70-130); Calcium 7.5 mg/dL (7.8-10.44); Carbon Dioxide 23 mmol/L (23-31); Chloride 109 mmol/L (98-107); Globulin 1.9 g/dL (2.4-3.5); Glucose 104 mg/dL (83-110); Potassium 3.4 mmol/L (3.5-5.1); Protein, Total 4.5 g/dL (5.8-8.1); Sodium 141 mmol/L (136-145)
[2021-01-27] MEDS ORDERED: Vancomycin 1 GM/200 ML BAG ONE (14:32)
[2021-01-27] MEDS ORDERED: MEROPENEM 1 GM/50 ML 1 GM in Premix Bag 1 BAG IVPB SCH (15:15)
[2021-01-27] MEDS ORDERED: Electrolyte Replacement Protocol 1 EACH FS SCH (17:15)
[2021-01-27] MEDS ORDERED: Electrolyte Replacement Protocol FS PRN (17:45)
[2021-01-27 19:04] LABS: SARS-CoV-2 NAA Rapid Test Not Detected (NotDetected)
[2021-01-27 19:52] LABS: Magnesium 1.7 mg/dL (1.6-2.6)
[2021-01-27] MEDS ORDERED: Acetaminophen 325 MG TAB PO PRN (21:39)
[2021-01-27] MEDS ORDERED: Ondansetron ODT 4 MG TAB PO PRN (21:39)
[2021-01-27] MEDS ORDERED: Ondansetron PF 4 MG/2 ML Vial IVP PRN (21:39)
[2021-01-27] MEDS ORDERED: Acetaminophen 650 MG Suppository PR PRN (21:39)
[2021-01-27] MEDS ORDERED: Magnesium 2 GM/50 ML 2 GM in Premix Bag 1 BAG IVPB SCH (23:59)
[2021-01-28] MEDS ORDERED: Potassium Chloride 40 MEQ in Sodium Chloride 0.9% 250 ML 250 ML IVPB SCH (00:30)
[2021-01-29 05:35] VITALS: BMI 18.9
[2021-01-29] MEDS ORDERED: hydrALAZINE 20 MG/ML VIAL SLOW IVP PRN (11:17)
[2021-01-29] MEDS: Donepezil HCl 5 MG TAB PO SCH (21:46)
[2021-01-29] MEDS: Mirtazapine 15 MG TAB PO SCH (21:46)
[2021-01-30] MEDS: Stress 600 With Zinc 1 TAB PO SCH (09:13)
[2021-01-30] MEDS: Mirtazapine 15 MG TAB PO SCH (21:20)
[2021-01-30] MEDS: Donepezil HCl 5 MG TAB PO SCH (21:21)
[2021-01-30] MEDS: Latanoprost 0.005% Ophth Soln 2.5 ml Bottle EA EYE SCH (21:25)
[2021-01-31] MEDS: Stress 600 With Zinc 1 TAB PO SCH (08:30)
[2021-01-31] MEDS ORDERED: traZODone HCl 50 MG TAB PO SCH (21:00)
[2021-01-31] MEDS: Mirtazapine 15 MG TAB PO SCH (21:24)
[2021-01-31] MEDS: Donepezil HCl 5 MG TAB PO SCH (21:25)
[2021-01-31] MEDS: Latanoprost 0.005% Ophth Soln 2.5 ml Bottle EA EYE SCH (21:25)
[2021-02-01 07:50] VITALS: BP 110/51; TEMP 97.5
[2021-02-01] MEDS: Stress 600 With Zinc 1 TAB PO SCH (09:00)
== END 2021-02-01 11:10 | disposition hospice, inpatient (51) | DRG 694 ==
LOC: ERS 12:40 → T4-B 18:31
PROVIDERS: ADMIT Internal Medicine; ATTEND Family Medicine
DX: N13.30 Unspecified hydronephrosis (principal); G93.40 Encephalopathy, unspecified; F02.81 Dementia in other diseases classified elsewhere, unspecified severity, with behavioral disturbance; Z51.5 Encounter for palliative care; Z66 Do not resuscitate; Z20.822 Contact with and (suspected) exposure to COVID-19; N17.9 Acute kidney failure, unspecified; I48.0 Paroxysmal atrial fibrillation; I12.9 Hypertensive chronic kidney disease with stage 1 through stage 4 chronic kidney disease, or unspecified chronic kidney disease; N18.9 Chronic kidney disease, unspecified; Z96.0 Presence of urogenital implants; E78.00 Pure hypercholesterolemia, unspecified; G30.9 Alzheimer's disease, unspecified; E78.5 Hyperlipidemia, unspecified; E77.8 Other disorders of glycoprotein metabolism; E88.09 Other disorders of plasma-protein metabolism, not elsewhere classified; D35.02 Benign neoplasm of left adrenal gland; K76.89 Other specified diseases of liver; Z90.710 Acquired absence of both cervix and uterus; Z88.2 Allergy status to sulfonamides; Z88.8 Allergy status to other drugs, medicaments and biological substances; Z91.012 Allergy to eggs; Z79.899 Other long term (current) drug therapy; Z87.440 Personal history of urinary (tract) infections; Z85.72 Personal history of non-Hodgkin lymphomas; Z87.442 Personal history of urinary calculi; Z86.73 Personal history of transient ischemic attack (TIA), and cerebral infarction without residual deficits; Z85.43 Personal history of malignant neoplasm of ovary; Z85.42 Personal history of malignant neoplasm of other parts of uterus; Z92.21 Personal history of antineoplastic chemotherapy; Z82.49 Family history of ischemic heart disease and other diseases of the circulatory system
CPT/HCPCS: 36415; 71045; 74176; 80053; 81003; 81015; 82533; 83605; 83735; 84484; 85025; 87040; 87086; 93005; 94760; J2185; J3370; J3475; J3480; J7050; U0002